=== PATIENT | female | born 1975 | race Caucasian/White ===

== ENCOUNTER 2020-08-16 09:02 | Emergency (ER) | payer BC, SELFPAY ==
--- NOTE | ~2020-08-16 | XR_ITS ---
EXAMINATION: XR foot RT min 3V DATE: 08/16/2020 09:36 INDICATION: Right foot injury and pain. TECHNIQUE: 4 views of right foot were obtained. COMPARISON: None. FINDINGS: There is mild hallux valgus. There is a nondisplaced oblique fracture of base of fifth meta tarsal. There is mild osteoarthritis of first and fifth metatarsophalangeal joints and talonavicular joint. There are enthesophytes at the posterior and plantar aspects of calcaneal tuberosity. IMPRESSION: 1. Nondisplaced oblique fracture of base of fifth metatarsal. 2. Mild polyarticular osteoarthritis. 3. Mild hallux valgus. Reviewed, dictated and finalized at location A.
[2020-08-16 09:12] VITALS: BP 108/53; PULSE 75; RESP 16; TEMP 36.7; O2SAT 100
--- NOTE | 2020-08-16 09:20 | ED.LOWEXIN ---
HPI - Extremity Injury (Lower) General Chief Complaint: Extremity Injury, Lower Stated Complaint: right ankle pain/fall down stairs Time Seen by Provider: 08/16/20 09:20 Source: patient and RN notes reviewed History of Present Illness HPI Narrative: Patient is a 45-year-old female who presents the urgent care with complaints of right lateral foot pain. Patient states that this morning she fell down the steps completely turning her right foot outward. Patient states that it does not hurt to bear weight on the foot unless she bears all of her weight on the ball of the foot. States that the pain exacerbates with movement. States that she is taken Tylenol and used ice prior to arrival. No other acute complaints or injuries from the fall. Denies hitting her head. No acute distress noted. Patient aware of the plan of care. Some parts of this dictation were generated by voice recognition software and may contain typographical and/or grammatical inaccuracies. Related Data Home Medications Medication Instructions Recorded Confirmed bupropion HCl [Wellbutrin XL] 300 mg PO QAM 08/16/20 08/16/20 topiramate 100 mg PO DAILY 08/16/20 08/16/20 venlafaxine [Effexor XR] 75 mg PO DAILY 08/16/20 08/16/20 Allergies Allergy/AdvReac Type Severity Reaction Status Date / Time Penicillins Allergy Unknown Swelling Verified 08/16/20 09:17 of Lip/Tongue/Throat Review of Systems Review of Systems: Narrative: CONSTITUTIONAL: Denies fever, chills, or sweats. EYES: Denies visual changes, redness, or discharge. ENT: Denies rhinorrhea, congestion, sore throat, or otalgia. CARDIOVASCULAR: Denies chest pain, palpitations, or edema. RESPIRATORY: Denies cough or dyspnea. GASTROINTESTINAL: Denies abdominal pain, nausea, vomiting, or diarrhea. GENITOURINARY: Denies dysuria or hematuria. SKIN: Denies rash or itching. MUSCULOSKELETAL: Reports of right lateral foot pain due to fall NEUROLOGIC: Denies headache, numbness, or weakness. All other systems reviewed are negative, except as documented in HPI. PMFSH Comments At the time of my signature, I reviewed and agree with the nursing past medical, surgical, social, and family history. There is no relevant family history pertinent to the patient complaint. Exam Narrative: Exam Narrative: GENERAL: This is a well-nourished, well-developed patient, in no apparent distress. HEAD: normocephalic, atraumatic. EYES: PERRL. Sclera clear/white. Vision is grossly intact. EARS: External ears normal NOSE: External nose normal with no obvious nasal discharge, nares without redness, no rhinorrhea. THROAT: Mucous membranes moist, posterior pharynx clear. NECK: Neck supple SKIN: warm, intact with no suspicious lesions or rash, good texture and turgor. NEURO: awake, alert, and oriented to person, place and time. There were no obvious focal neurologic abnormalities. EXTREMITIES: Mild edema noted to the right proximal lateral foot with slight ecchymosis. Positive strong right pedal pulse with capillary refill less than 2 seconds. Range of motion not tested due to pain. Patient ambulates with mild difficulty. No obvious deformity or fracture noted to the right lower extremity. Course Vital Signs Vital signs: Vital Signs Temperature 98.1 F 08/16/20 09:12 Pulse Rate 75 08/16/20 09:12 Respiratory Rate 16 08/16/20 09:12 Blood Pressure 108/53 L 08/16/20 09:12 Pulse Oximetry 100 08/16/20 09:12 Temperature 98.1 F 08/16/20 09:12 Pulse Rate 75 08/16/20 09:12 Respiratory Rate 16 08/16/20 09:12 Blood Pressure 108/53 L 08/16/20 09:12 Pulse Oximetry 100 08/16/20 09:12 Reviewed Procedures Orthopedic Splinting/Casting Injury #1: Side: right Lower Extremity Injury Location: foot (Fifth metatarsal fracture) OCL: short leg (Posterior) Pre-Procedure Neuro Vascular Exam: normal Post-Procedure Neuro Vascular Exam: normal Other Orthopedic Equipment: crutc
== END 2020-08-16 10:39 | disposition home or self-care (01) ==
PROVIDERS: Emergency Provider Nurse Practitioner Family; PCP Internal Medicine
DX: S92.354A Nondisplaced fracture of fifth metatarsal bone, right foot, initial encounter for closed fracture (principal); W10.9XXA Fall (on) (from) unspecified stairs and steps, initial encounter; F41.9 Anxiety disorder, unspecified; F32.9 Major depressive disorder, single episode, unspecified
CPT/HCPCS: 29515; 73630; 99214; G0463

== ENCOUNTER 2021-04-01 13:15 | Outpatient (CLI) | payer BC, SELFPAY ==
--- NOTE | ~2021-04-01 | XR_ITS ---
XR foot RT min 3V DATE: 04/01/2021 13:30 INDICATION: Lateral foot pain after injury in August 2020 TECHNIQUE: Standing 4 view examination COMPARISON: 09/04/2020 right foot FINDINGS: Minimal plantar and mild posterior calcaneal enthesopathy. No fracture or dislocation, periosteal reaction or bone destruction. Joint spaces are preserved. No e rosive changes. IMPRESSION: Plantar and posterior calcaneal enthesopathy No fracture or dislocation Reviewed, dictated and finalized at location A.
== END 2021-04-01 13:16 | disposition home or self-care (01) ==
LOC: ANHBWCIMG 13:16
PROVIDERS: PCP Internal Medicine; Visit Provider Orthopaedic Surgery
DX: M79.671 Pain in right foot (principal); M77.31 Calcaneal spur, right foot
CPT/HCPCS: 73630

== ENCOUNTER 2025-08-14 14:09 | Emergency (ER) | payer OTHER, SELFPAY ==
[2025-08-14 14:16] VITALS: BP 114/68; PULSE 79; RESP 20; TEMP 36.5; O2SAT 100
--- NOTE | 2025-08-14 14:30 | ED.URI ---
HPI - URI/Sore Throat General Chief Complaint: Upper Respiratory Infection Stated Complaint: Sore Throat/Headache/Cough Time Seen by Provider: 08/14/25 14:30 Source: patient and RN notes reviewed Mode of arrival: ambulatory Limitations: no limitations History of Present Illness HPI Narrative: 50-year-old female presents concern for sore throat, nasal congestion for 4 days. Reports she started having a productive cough yesterday. She has been taking Mucinex. She denies body aches, chills, fever, sweats. MD elicited complaint: cough and sore throat Related Data Home Medications ?Medication ?Instructions ?Recorded ?Confirmed ?Last Taken ?Type bupropion HCl 300 mg 24 hr tablet, 300 mg PO QAM 08/16/20 04/01/21 Unknown History extended release (Wellbutrin XL) venlafaxine 75 mg capsule,extended 75 mg PO DAILY 08/16/20 04/01/21 Unknown History release 24 hr (Effexor XR) atorvastatin 10 mg tablet mg 08/14/25 Unknown History propranolol 40 mg tablet mg 08/14/25 Unknown History topiramate 50 mg tablet mg 08/14/25 Unknown History Allergies Allergy/AdvReac Type Severity Reaction Status Date / Time Penicillins Allergy Unknown Swelling Verified 08/14/25 14:20 of Lip/Tongue/Throat Review of Systems Review of Systems: CONSTITUTIONAL: Denies malaise, chills, sweats, or fever. EYES: Denies visual changes, redness, or discharge. ENT: Reports rhinorrhea, congestion, and sore throat. CARDIOVASCULAR: Denies chest pain, palpitations, or edema. RESPIRATORY: Reports cough. Denies dyspnea. GASTROINTESTINAL: Denies abdominal pain, nausea, vomiting, diarrhea SKIN: Denies rash or itching. MUSCULOSKELETAL: Denies myalgia. NEUROLOGIC: Denies headache. All systems reviewed & are unremarkable except as noted in HPI and below PMFSH Past Medical History Medical History (Updated 08/14/25 @ 14:35 by Rosa De Jesus NP) Acquired bilateral pes cavus Peroneal tendinitis of right lower extremity Foot sprain Anxiety Depression Anemia GERD (gastroesophageal reflux disease) Vision changes Sleep apnea Dizziness Chronic headaches Family History Family History Other Heart disease Hypertension Malignant neoplasm Social History Social History Smoking status: Never smoker Alcohol intake: never Comments At time of signature, agree with nursing past medical, surgical, social and family history. There is no relevant family history pertinent to the presenting complaint Exam Narrative: GENERAL: Well-appearing, well-nourished, and in no acute distress. HEAD: Normocephalic EYES: PERRLA, conjunctivae clear ENT: Nares clear, turbinates edematous and erythematous, clear discharge. Mucous membranes moist. TM pearly with sharp light reflex bilaterally; no tragal tenderness. Oropharynx not erythematous without lesions. Tonsils not enlarged and without exudate, no drooling, no hoarseness, no trismus, uvula midline. NECK: Supple. No lymphadenopathy CHEST: Clear to auscultation, breath sounds equal. No wheezing, rhonchi, rales, or stridor. No respiratory distress, speaks in full sentences. HEART: Regular rate and rhythm. No murmur heard. SKIN: Warm, dry, no rash. NEURO: Alert and oriented x3. PSYCH: Normal mood and affect Course Course Emergency Course: Patient is aware of diagnosis, understands and agrees to treatment plan. Anticipatory guidance given. Patient agrees to follow-up as directed and is aware of reasons to seek care at the emergency department. Portions of this record may have been created with voice recognition software Level of Care: Express Care Visit Vital Signs Vital signs: Vital Signs Temperature 97.7 F 08/14/25 14:16 Pulse Rate 79 08/14/25 14:16 Respiratory Rate 08/14/25 14:16 Blood Pressure 114/68 08/14/25 14:16 Pulse Oximetry 100 08/14/25 14:16 Oxygen Delivery Room Air 08/14/25 14:16 Temperature 97.7 F 08/14/25 14:16 Pulse Rate 79 08/14/25 14:16 Respiratory Rate 08/14/25 14:16 Blood Pressure 114/68 08/14/25 14:16 Pulse Oximetry 100 08/14/25 14:16 Oxygen Delivery Room Air 08/14/25 14:16 Reviewed. MDM - URI/Sore Throat MDM Narrative Medical decision making narrative: Differential diagnosis considered: Baez virus, strep pharyngitis, allergic rhinitis, upper respiratory tract infection, sinusitis, rhinosinusitis, nasopharyngitis. viral pharyngitis, otitis media, otitis externa, pneumonia, bronchitis, viral cough syndrome, viral syndrome, and influenza. Exam findings show no acute concerns or changes; patient is non-toxic appearing and is in no distress. Patient is appropriate for outpatient treatment and follow-up. Lab Data Attestation: I reviewed the patient's lab results. Critical Care Time Critical Care Time Critical Care Time: No Discharge Plan Discharge Clinical Impression: Upper respiratory infection Patient Disposition: Home Condition: Stable Instructions: Upper Respiratory Infection (ED) Additional Instructions: Your rapid strep swab was negative today at [facility]. A throat culture will be sent to the laboratory for further testing. If the test is positive, you will receive a phone call within 48 hours and an appropriate antibiotic will be initiated at that time. Your symptoms are likely due to a viral illness, which is not treated with antibiotics. Viral symptoms can be present for up to a few weeks. -Alternate Tylenol and Motrin per package directions for fever or pain. -Antihistamine medication such as Benadryl at night and Zyrtec during the day can help improve symptoms. -Eat and drink things that are easy to swallow, like tea or soup, or popsicles to suck on. -Oral rinses such as: Salt water gargles and/or may use topical anesthetic (eg. Chloraseptic spray) or lozenges to relieve dryness or throat pain). -Frequent hand washing or hand proposal lead writer is one of the best ways to prevent spread of infection. -Follow up with primary care provider in 2-3 days if condition is not improving; or seek ER visit if you have trouble breathing, cannot drink enough fluids, have muffled voice, difficulty opening your mouth, or severe swelling. Patient Language: Lao Prescriptions: New pseudoephedrine HCl [12 Hour Decongestant] 120 mg tablet extended release 120 mg PO Q12H PRN (Reason: nasal congestion) Qty: 20 0RF dextromethorphan-guaifenesin [Mucinex DM] 60-1,200 mg tablet extended release 12 hr 1 tablet PO Q12H Qty: 12 0RF No Action venlafaxine [Effexor XR] 75 mg Capsule,Extended Release 24hr 75 mg PO DAILY bupropion HCl [Wellbutrin XL] 300 mg Tablet Extended Release 24 Hr 300 mg PO QAM atorvastatin 10 mg tablet propranolol 40 mg tablet topiramate 50 mg tablet Follow-up/Referrals: Kuldip,MD Kobe [Primary Care Provider] Stand Alone Forms: Work/School Release IP Time of Disposition: 14:36
[2025-08-14 14:34] LABS: EDSTREPNEGPOS1 Negative (Negative)
--- OUTSIDE RECORDS SUMMARY | 2025-08-14 14:46 | XMS_ITS | Clinical Summary ---
Author Organization [facility] Address [facility] [place] [address] Care Team Providers Care Petal Shaper Hand Name Role Phone Kobe Christiansen MD Primary Care Provider [phone] Allergies Active Allergy Reactions Criticality Noted Date Comments Penicillins Anaphylaxis,Swelling High 12/17/1988 Medications CALCIUM OR Take 500 mg by mouth 2 (two) times daily. Active vitamin D3, cholecalciferol, (D 5000) 125 mcg capsule Take 1 capsule (5,000 Units total) by mouth daily. Active famotidine (PEPCID) 20 MG tablet Take 1 tablet (20 mg total) by mouth daily. Active propranolol (INDERAL) 40 MG tablet Take 1 tablet (40 mg total) by mouth 2 (two) times daily. 12/22/19 25 Active tirzepatide (MOUNJARO) 2.5 MG/0.5ML injection 12/12/19 25 Active vitamin E (E200) 90 MG (200 UNIT) capsule Take 1 capsule (200 Units total) by mouth daily. Active amitriptyline (ELAVIL) 10 MG tablet Take 1 tablet every day by oral route at bedtime. Active buPROPion XL (WELLBUTRIN XL) 300 MG 24 hr tabletIndications: Mixed anxiety and depressive disorder TAKE 1 TABLET(300 MG) BY MOUTH DAILY 90 tablet 06/17/20 25 Active ketoconazole (NIZORAL) 2 % creamIndications:R doug Apply topically 2 (two) times daily. 30 g 1 08/01/20 25 Active atorvastatin (LIPITOR) 10 MG tabletIndications: Mixed hyperlipidemia Take 1 tablet (10 mg total) by mouth daily. 90 tablet 1 08/01/20 25 Active venlafaxine XR (EFFEXOR-XR) 75 MG 24 hr capsuleIndications :Mixed anxiety and depressive disorder Take 1 capsule (75 mg total) by mouth daily. 90 capsule 1 08/01/20 25 Active topiramate (TOPAMAX) 50 MG TabIndications:Chr onic tension-type headache, not intractable Take 1 tablet (50 mg total) by mouth 2 (two) times daily. 180 tablet 1 08/08/20 25 Active topiramate (TOPAMAX) 50 MG Tab Take 1 tablet (50 mg total) by mouth 2 (two) times daily. 025 Discontin ued(Reord er) venlafaxine XR (EFFEXOR-XR) 75 MG 24 hr capsule Take 1 capsule (75 mg total) by mouth daily. 12/22/19 25 025 Discontin ued(Reord er) atorvastatin (LIPITOR) 10 MG tablet Take 1 tablet (10 mg total) by mouth daily. 03/14/20 25 025 Discontin ued(Reord er) Active Problems Problem Noted Date Diagnosed Date Ischemic colitis ([facility]) 08/01/2025 Assessment & Plan (08/01/2025 1:47 PM CDT): - Hospitalized for ischemic colitis, presenting with bloody diarrhea. -Symptoms have resolved, and she is currently asymptomatic. - Colonoscopy on 06/14/2025 revealed mucosal ulceration in the sigmoid and descending colon. Completed treatment with Cipro and Flagyl at home. - Discussed the need for a follow-up colonoscopy in a year to ensure healing. Referral to a apple picking supervisor will be made. Orders: Ambulatory referral to Gastroenterology Chronic tension-type headache, not intractable 0 04/22/2025 Assessment & Plan (08/01/2025 1:47 PM CDT): -stable on tomamax/propranalol/elavil Assessment & Plan (04/22/2025 2:35 PM CDT): -stable on tomamax/propranalol/elavil Mixed anxiety and depressive disorder 04/20/2025 Assessment & Plan (08/01/2025 1:47 PM CDT): Stable -pt is on effexor/wellbutrin Orders: venlafaxine XR (EFFEXOR-XR) 75 MG 24 hr capsule; Take 1 capsule (75 mg total) by mouth daily. Assessment & Plan (04/22/2025 2:35 PM CDT): Stable -pt is on effexor/wellbutrin Orders: COMPREHENSIVE METABOLIC PANEL; Future CBC W/DIFF AUTOMATED; Future Mixed hyperlipidemia 04/20/2025 Assessment & Plan (08/01/2025 1:47 PM CDT): -continue statin with diet and exercise Orders: atorvastatin (LIPITOR) 10 MG tablet; Take 1 tablet (10 mg total) by mouth daily. Assessment & Plan (04/22/2025 2:35 PM CDT): -continue statin with diet and exercise Orders: LIPID PANEL; Future LFT elevation 04/20/2025 Assessment & Plan (08/01/2025 5:14 PM CDT): -hepatitis panel-neg Recent hospital labs showed normal LFT Essential tremor 08/30/2021 Assessment & Plan (08/01/2025 1:47 PM CDT): -stable on propranolol Assessment & Plan (04/22/2025 2:35 PM CDT): -stable on propranolol Family history of colon cancer 11/05/2020 Overview (04/20/2025): Grand mother had colon cancer-colonoscopy 04/06-repeat in 10 yrs Obstructive sleep apnea syndrome in adult 2011 Overview (04/20/2025): on cpap/ sees Assessment & Plan (04/22/2025 2:35 PM CDT): pt lost weight and not using cpap now Resolved Problems Problem Noted Date Diagnosed Date Resolved Date Other primary sleep apnea of 04/20/2025 04/20/2025 Encounters Date Type Department Care Team Description 08/01/2025 10:40 AM CDT Office Visit [facility] Family & Internal Medicine [address] [phone] Kobe Christiansen MD Follow Up (3 mo f/u) 08/01/2025 Travel 07/27/2025 Travel from Last 3 Months Immunizations Immunization Administration Dates Next Due COVID-19 Vaccine (Generic) 02/05/2021 Influenza (Generic) 09/23/2024 Influenza Adult (Generic) 09/01/2022,08/30/2021, 10/19/2019,08/13/2016 MMR (MMRII) 04/25/2009 Td (Generic) 11/16/2010 Tdap (Generic) 05/08/2022 Family History Medical History Relation Comments Hypertension Maternal Grandmother Stroke Maternal Grandmother Heart Disease Mother Cancer Paternal Aunt Cancer Paternal Grandfather Cancer Paternal Grandmother Relation Status Comments Brother Alive Maternal Grandmother Mother Paternal Aunt Paternal Grandfather Paternal Grandmother Social History Tobacco Use Types Packs/Day Years Used Date Smoking Tobacco: Never Passive Smoke Exposure: Never Smokeless Tobacco: Never Tobacco Cessation:Counseling Given: No Alcohol Use Standard Drinks/Week Comments Never 0 (1 standard drink = 0.6 oz pur e alcohol) PHQ-2 Answer Date Recorded Patient Health Questionnaire-2 Score 1 04/20/2025 Comments No Sex and Gender Information Value Date Recorded Sex Assigned at Not on file Legal Sex Female 5:57 PM CORPORATE MANAGER Gender Identity Not on file Sexual Orientation Not on file Last Filed Vital Signs Vital Sign Reading Time Taken Comments Blood Pressure 133/81 08/01/2025 10:52 AM CDT Pulse 66 08/01/2025 10:52 AM CDT Temperature 36.9 C (98.5 F) 08/01/2025 10:52 AM CDT Respiratory Rate 16 08/01/2025 10:52 AM CDT Oxygen Saturation 100% 08/01/2025 10:52 AM CDT Inhaled Oxygen Concentration - - Weight 64 kg (141 lb) 08/01/2025 10:52 AM CDT Height 154.9 cm (5' 1) 08/01/2025 10:52 AM CDT Body Mass Index 26.64 08/01/2025 10:52 AM CDT Plan of Treatment Upcoming Encounters Date Type Department Care Team (Late st Contact Info) Description 10/11/2025 11:20 AM CORPORATE MANAGER Office Visit [facility] [place] [address] [place] [address] [place] [address] [place] [phone] Tana Niño, GEENA [address] [address] 10/31/2025 4:20 PM CORPORATE MANAGER Office Visit [facility] Family & Internal Medicine - [place] [id number] [place] [phone] [place] [address] [place] [address] [phone] Health Maintenance Due Date Last Done Comments Cervical Cancer Screening Pa p Smear (Age 30 to 64) Every 3 Years 1976 Colorectal Cancer Screening Colonoscopy (10 Years) 1976 Annual Physical 1979 Hepatitis B Vaccines (1 of 3 - 19+ 3-dose series) 1995 Cervical Cancer Screening Pa p with HPV Testing (Age 30 to 64) Every 5 Years 2006 Cervical Cancer Screening wi th HPV 2006 Mammogram Screening 02/23/2025 02/23/2023, 07/27/2020, 09/18/2016 COVID-19 Vaccine (2 - 2024-2 6 season) 2025 02/05/2021 DTaP, Tdap and Td Vaccines ( 2 - Td or Tdap) 05/08/2032 05/08/2022, 11/16/2010 Hepatitis C Completed 04/20/2025 PHQ-2 (Physician Kenaitze) Completed 04/20/2025 Meningococcal B Vaccine Aged Out No l onger eligible based on patient's age to complete this topic Meningococcal Vaccine Aged Out No ashleigh nolberto eligible based on patient's age to complete this topic Pneumococcal Vaccine: Pediatrics (0 to 5 Years) and At-Risk Patients (6 to 49 Years) Aged Out No longer eligible b ased on patient's age to complete this topic RSV Immunizations Under 20 Months Aged Out No longer eligible b ased on patient's age to complete this topic Procedures Procedure Name Priority Date/Time Associated Diagnosis Comments HEPATITIS PANEL,ACUTE Routine 04/20/2025 8:49 AM CDT LFT elevation from Last 3 Months or Most Recently Relevant to Health Maintenance Results * HEPATITIS PANEL,ACUTE (04/20/2025 8:49 AM CDT) HEPATITIS B SURFACE AG NON-REACTI VE NON-REACTI VE 04/21/2025 12:20 AM CDT [facility] HEP B CORE IGM NON-REACTI VE NON-REACTI VE 04/21/2025 12:20 AM CDT [facility] HAV IGM NON-REACTI VE NON-REACTI VE 04/21/2025 12:20 AM CDT [facility] HEPATITIS C AB NON-REACTI VE NON-REACTI VE 04/21/2025 12:20 AM CDT [facility] 04/20/2025 8:49 AM CDT Kobe Christiansen MD LABORATORY Final Result [facility] [address] [place] [address], [place] [phone] from Last 3 Months or Most Recently Relevant to Health Maintenance Insurance [facility] Care Teams Petal Shaper Hand Relationship Specialty [place] [id number] [address] PCP - General INTERNAL MEDICINE 04/07/25
--- OUTSIDE RECORDS SUMMARY | 2025-08-14 14:46 | XMS_ITS | Clinical Summary ---
[facility] Organization [facility] Address [address] [place] [address] Phone Care Team Providers Care Housekeeper/Laundry Assistant Name Role Phone Kobe Christiansen MD Primary Care Provider Robyn Morales APRN, CLOUD ARCHITECT Unavailable Allergies Active Allergy Reactions Criticality Noted Date Comments Penicillins Swelling 10/01/2020 Medications buPROPion (Wellbutrin XL) 300 MG TABLET SR 24 HR XL tablet Take 300 mg by mouth every morning. Active venlafaxine (EFFEXOR) 75 MG Tablet Take 75 mg by mouth 3 times daily. Active topiramate (TOPAMAX) 100 MG Tablet Take 100 mg by mouth 2 times daily. Active propranolol (INDERAL) 40 MG Tablet Take 40 mg by mouth 3 times daily. Active Cholecalciferol (Vitamin D) 2000 UNIT Tablet Take by mouth. Active calcium 500 MG Tablet Take 500 mg by mouth 2 times daily. Active modafinil (PROVIGIL) 100 MG TabletIndication s:Excessive daytime sleepiness Take 1 Tablet by mouth daily. 30 Tablet 3 02/01/2024 Active Active Problems Problem Noted Date Diagnosed Date MARCELLUS (obstructive sleep apnea) 02/01/2024 Excessive daytime sleepiness 02/01/2024 Social History Tobacco Use Types Packs/Day Years Used Date Smoking Tobacco: Never Smokeless Tobacco: Never Tobacco Cessation:Counseling Given: Not Answered Alcohol Use Standard Drinks/Week Comments Never 0 (1 standard drink = 0.6 oz pur e alcohol) Sexually Active Control Partners Comments Not Currently Comments No Sex and Gender Information Value Date Recorded Sex Assigned at Not on file Legal Sex Female 11:33 PM CDT Gender Identity Not on file Sexual Orientation Not on file Last Filed Vital Signs Vital Sign Reading Time Taken Comments Blood Pressure 128/72 02/01/2024 11:18 AM CDT Pulse 88 02/01/2024 11:18 AM CDT Temperature 36.3 C (97.4 F) 02/01/2024 11:18 AM CDT Respiratory Rate 14 02/01/2024 11:18 AM CDT Oxygen Saturation 97% 02/01/2024 11:18 AM CDT Inhaled Oxygen Concentration - - Weight 89.1 kg (196 lb 8 oz) 02/01/2024 11:18 AM CDT Height 154.9 cm (5' 1) 02/01/2024 11:18 AM CDT Body Mass Index 37.13 02/01/2024 11:18 AM CDT Plan of Treatment Health Maintenance Due Date Last Done Comments Hepatitis C Virus (HCV) Screening 1976 Hepatitis B Immunization (1 of 3 - 19+ 3-dose series) 1995 Pap Smear 1997 Cervical Cancer Screening (CCS) 2006 HPV/Cotest 2006 Cologuard 2021 Immunochemical Fecal Occult Blood 2021 Mammogram 02/24/2024 02/23/2023, 07/17, 09/18/2016 Influenza Immunization (#1) 07/17/202508/16, 08/30/2021, 10/19/2019, Additional history exists SARS-COV-2 Immunization ( season) 2025 02/05/2021 Colonoscopy 02/19/2032 02/18/2022 Colorectal Cancer Screening 02/19/2032 Respiratory Syncytial Virus (RSV) Immunization (Adult) (1 - 1-dose 75+ series) 2051 DTaP/Tdap/Td Immunization Discontinued 05/08/2022, 11/2010 TdaP Immunization Completed 05/08/2022 Discussion re Starting/Frequency of Mammograms Completed 02/23/2023, 07/27/2020, 09/18/2016 Human Papillomavirus (HPV) Immunization Aged Out No longer eligible based on patient's age to complete this topic Meningococcal Immunization (ACWY) Aged Out No longer eligible based on patient's age to complete this topic Pneumococcal Immunization Combined Aged Out No longer eligible based on patient's age to complete this topic Rotavirus Immunization Aged Out No lo nger eligible based on patient's age to complete this topic Procedures Procedure Name Priority Date/Time Associated Diagnosis Comments [facility] SCREENING BILATERAL DIGITAL W CAD Routine 09/18/2016 2:23 PM CDT Visit for screening mammogram from Last 3 Months or Most Recently Relevant to Health Maintenance Results * [facility] SCREENING BILATERAL DIGITAL W CAD (09/18/2016 2:23 PM CDT) Anatomical Region Laterality Modality breast Bilateral Mammography 09/18/2016 2:09 PM CDT Narrative 09/30/2016 8:00 AM [employer]ENT[employer] - [facility] SCREENING BILATERAL DIGITAL W CAD BILATERAL DIGITAL SCREENING MAMMOGRAM WITH CAD WITH MEDIOLATERAL OBLIQUE CRANIOCAUDAL: 09/18/2016 The study was acquired using digital technology and interpreted from soft copy. Current study was also evaluated with ICAD version 7.2. CLINICAL: Routine screening. Patient has no complaints. No personal history of cancer. No family history of breast cancer. COMPARISONS: Comparison is made to exams dated: 01/22/2015, 01/25/2015, 01/29/2015, 07/30/2015, and 08/03/2015 [facility]. BREAST TISSUE: There are scattered fibroglandular densities in both breasts. FINDINGS: There is a benign cyst in the lateral left breast. No significant masses, calcifications, or other findings are seen in either breast. There has been no significant interval change. IMPRESSION: BI-RAD 2 BENIGN There is no mammographic evidence of malignancy. A 1 year screening mammogram is recommended. The patient has been or will be contacted. The patient will be entered into a reminder system with a target due date of 1 year for her next screening exam. Electronically signed by: Jameson Kellye M.D. nh/:09/29/2016 18:13:17 Music Journalist: Renee Cuellar([place]), [facility] letter sent: Normal Exam Reading location: [facility] BI-RADS: 2 Benign Procedure Note Jameson Kelley MD - 09/30/2016 - [facility] SCREENING BILATERAL DIGITAL W CAD BILATERAL DIGITAL SCREENING MAMMOGRAM WITH CAD WITH MEDIOLATERAL OBLIQUE CRANIOCAUDAL: 09/18/2016 The study was acquired using digital technology and interpreted from soft copy. Current study was also evaluated with ICAD version 7.2. CLINICAL: Routine screening. Patient has no complaints. No personal history of cancer. No family history of breast cancer. COMPARISONS: Comparison is made to exams dated: 01/22/2015, 01/25/2015, 01/29/2015, 07/30/2015, and 08/03/2015 [facility]. BREAST TISSUE: There are scattered fibroglandular densities in both breasts. FINDINGS: There is a benign cyst in the lateral left breast. No significant masses, calcifications, or other findings are seen in either breast. There has been no significant interval change. IMPRESSION: BI-RAD 2 BENIGN There is no mammographic evidence of malignancy. A 1 year screening mammogram is recommended. The patient has been or will be contacted. The patient will be entered into a reminder system with a target due date of 1 year for her next screening exam. Electronically signed by: Jameson Kelley M.D. nh/:09/29/2016 18:13:17 Music Journalist: Renee Cuellar(R), [facility] letter sent: Normal Exam Reading location: [facility] BI-RADS: 2 Benign us Brea Tolliver MD IMG MAMMO ORDERABLES Final Resu lt from Last 3 Months or Most Recently Relevant to Health Maintenance Insurance [facility] O on file Care Teams Housekeeper/Laundry Assistant Relationship Specialty Start Date End Date Kobe Christiansen MD [address] [place] [address] PCP - General Internal Medicine 09/16/16 Robyn Morales APRN, CLOUD ARCHITECT [address] [address] Nurse Practitioner Advanced Practice Nurse 02/01/24
--- OUTSIDE RECORDS SUMMARY | 2025-08-14 14:46 | XMS_ITS | Clinical Summary ---
Author Organization [facility] Address [address] [place] [address] Care Team Providers Care Clinical Exercise Physiologist Name Role Phone Kobe Christiansen MD Primary Care Provider [phone] Erma Rangel MD Unavailable Allergies Active Allergy Reactions Criticality Noted Date Comments Penicillins Swelling Medium 10/01/2020 Medications buPROPion XL (WELLBUTRIN XL) 300 mg 24 hr tablet Take 1 tablet (300 mg total) by mouth nightly 3 9 Active venlafaxine XR (EFFEXOR-XR) 75 mg 24 hr capsule Take 1 capsule (75 mg total) by mouth nightly 0 9 Active propranoloL (INDERAL) 40 mg tablet Take 1 tablet (40 mg total) by mouth nightly Active cholecalciferol (VITAMIN D-3) 5,000 unit capsule Take 1 capsule (5,000 Units total) by mouth nightly Active vitamin E (AQUASOL E) 200 unit capsuleIndicati ons:takes 180 units Take 1 capsule (200 Units total) by mouth nightly Active famotidine (PEPCID) 20 mg tablet Take 1 tablet (20 mg total) by mouth nightly Active topiramate (TOPAMAX) 50 mg tablet Take 1 tablet (50 mg total) by mouth nightly Active tirzepatide (Mounjaro) 2.5 mg/0.5 mL pen injector injection Inject 0.5 mL (2.5 mg total) under the skin once a week Pt takes on Saturdays 5 Active atorvastatin (LIPITOR) 10 mg tablet Take 1 tablet (10 mg total) by mouth daily 5 Active docusate sodium (Colace) 100 mg capsule Take 1 capsule (100 mg total) by mouth daily as needed 2 Active Active Problems Problem Noted Date Diagnosed Date Colitis 06/12/2025 Bloody diarrhea 06/12/2025 Lower abdominal pain 06/12/2025 Encounter for screening colonoscopy 02/13/2022 Overview (02/13/2022): Added automatically from request for surgery [id number] Essential tremor 08/30/2021 Abnormal smell 08/30/2021 Family history of colon cancer 11/14/2020 Overview (11/14/2020): Added automatically from request for surgery [id number] Headache 05/16/2015 Overview (02/19/2017): Frequent headaches Vitamin D deficiency 05/16/2015 Overview (02/19/2017): Vitamin D deficiency Sleep apnea 04/01/2014 Overview (02/21/2017): Sleep apnea Hypersomnia with sleep apnea 04/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 Overview (02/18/2017): Hypersomnia with sleep apnea Adiposity 04/01/2012 Overview (02/18/2017): Obesity Obstructive sleep apnea syndrome in adult 2011 Overview (02/19/2017): Obstructive sleep apnea syndrome in adult Resolved Problems Problem Noted Date Diagnosed Date Resolved Date 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 08/30/2021 Encounters Date Type Department Care Team Description 06/20/2025 Telephone [facility] Gastroenterology at [place] [address] [facility] [address] [place] [phone] Gia Balbuena 06/16/2025 [facility] Post Discharge Follow up phone call [facility] Acute Medicine [address] [place] [address] Aura Zavala, RN 06/16/2025 Results Follow-Up [facility] Gastroenterology at [address] [place] [phone] Erma Rangel MD Surgical pathology 06/14/2025 12:55 PM CDT - 06/14/2025 1:25 PM CDT Surgery [address] [address] Erma Rangel MD COLON BIOPSY 06/14/2025 12:08 PM CDT Anesthesia Event [address] [address] Christoph Andrade MD McDowell, Xiang Rodriguez MD 06/12/2025 8:37 AM CDT - 06/14/2025 5:42 PM CDT Hospital Encounter [facility] [address] [place] [address] Kelli Ceballos MD Nikolic, Jelena, MD Kheirkhahan, Nazanin, MD Colitis (Primary Dx); Bloody stool; Bloody diarrhea; Lower abdominal pain Discharge Disposition: Discharge to home or self care from Last 3 Months Surgical History Surgery Date Site/Laterality Comments OTHER SURGICAL HISTORY 11/16/1995 - 11/15/1996 : 10 hr labor OTHER SURGICAL HISTORY 11/16/1999 - 11/15/2000 : 24 hr labor OTHER SURGICAL HISTORY Depression ([id number]): Drug therapy COLONOSCOPY 02/18/2022 1st Medical History Medical History Date Comments Hx Other Medical 1995 ; Outc ome: 38 week 7 lb(s) 10 oz Male Hx Other Medical 1999 ; Outc ome: 38 week 6 lb(s) 5 oz Female Sleep apnea 2010 Sleep apnea Hx Other Medical Depression (199 -2007) Family History Medical History Relation Name Comments Other Brother 2 Alive and well; COPD Maternal Grandmother COPD; C ause of : COPD Heart disease Maternal Grandmother Heart disease; Osteoporosis Maternal Grandmother Osteopo rosis; COPD Mother COPD; Hypertension Mother Hypertension; Colon cancer Paternal Grandmother Breast cancer Neg Hx Ovarian cancer Neg Hx Thyroid cancer Neg Hx Relation Name Status Comments Brother 1 Alive Brother 2 Maternal Grandmother Mother Paternal Grandmother Social History Tobacco Use Types Packs/Day Years Used Date Smoking Tobacco: Never Smokeless Tobacco: Never Alcohol Use Standard Drinks/Week Comments No 0 (1 standard drink = 0.6 oz pur e alcohol) [facility] Utilities Answer Date Recorded In the past 12 months has th e electric, gas, oil, or water company threatened to shut off services in your home? No 06/13/2025 Social Connection and Isolation Panel Answer Date Recorded In a typical week, how many times do you talk on the phone with family, friends, or neighbors? More than three times a week 06/13/2025 How often do you get togethe r with friends or relatives? More than three times a week 06/13/2025 How often do you attend chur ch or mandaen services? More than 4 times per year 06/13/2025 Do you belong to any clubs o r organizations such as jainism groups, unions, fraternal or athletic groups, or school groups? No 06/13/2025 How often do you attend meet ings of the clubs or organizations you belong to? More than 4 times per year 06/13/2025 Are you , , di vorced, , never , or living with a partner? 06/13/2025 AUDIT-C Answer Date Recorded Q1: How often do you have a drink containing alc ohol? Never 02/18/2022 Average Number of Drinks Not on file 022 Frequency of Binge Drinking Not on file 03/2022 Overall Financial Resource Strain (CARDIA) Answe r Date Recorded How hard is it for you to pa y for the very basics like food, housing, medical care, and heating? Not hard at all 06/13/2025 Hunger Vital Sign Answer Date Recorded Within the past 12 months, y ou worried that your food would run out before you got the money to buy more. Never true 06/13/20 25 Within the past 12 months, t he food you bought just didn't last and you didn't have money to get more. Never true 06/13/2025 PRAPARE - Transportation Answer Date Re corded In the past 12 months, has l ack of transportation kept you from medical appointments or from getting medications? No 05/17 In the past 12 months, has l ack of transportation kept you from meetings, work, or from getting things needed for daily living? No 06/13/2025 Housing Stability Vital Sign Answer Ted e Recorded In the last 12 months, was t here a time when you were not able to pay the mortgage or rent on time? No 06/13/2025 In the past 12 months, how m any times have you moved where you were living? 0 06/13/2025 At any time in the past 12 m [facility], were you homeless or living in a skilled nursing (including now)? No 06/13/2025 Personal Safety Answer Date Recorded Have you ever been in or are you currently in a harmful physical or emotional relationship or is someone making you feel afraid or unsafe? 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 Gender Identity Female 11/26/2021 1:01 PM TRANSPORT OPERATIONS INSPECTOR Sexual Orientation Straight 11/26/2021 1: 01 PM TRANSPORT OPERATIONS INSPECTOR Obstetrics History Para Term AB IAB SAB Ectopic Multiple Livin g Live Births 2 2 2 Date Outcome GA Total Labor Labor/2nd/3rd Weight Sex Type Anes PTL Deysi A1 A5 Name Clin Term Term Last Filed Vital Signs Vital Sign Reading Time Taken Comments Blood Pressure 113/62 06/14/2025 4:11 PM CDT Pulse 70 06/14/2025 4:11 PM CDT Temperature 36.4 C (97.6 F) 06/14/2025 4:11 PM CDT Respiratory Rate 18 06/14/2025 4:11 PM CDT Oxygen Saturation 100% 06/14/2025 4:11 PM CDT Inhaled Oxygen Concentration - - Weight 62.7 kg (138 lb 3.7 oz) 06/12/2025 4:25 P M CDT Height 154.9 cm (5' 1) 06/12/2025 4:25 PM CDT Body Mass Index 26.12 06/12/2025 4:25 PM CDT Plan of Treatment Health Maintenance Due Date Last Done Comments Cervical Cancer Screening 1975 Depression Screening 1975 Hepatitis C Screening 1975 Hepatitis B Screening 1994 Regular Well Visit/Exam 18-64 1994 Breast Cancer Screening-Mammogram 02/24/2024 02/23/2023, 07/27/2020 Influenza Vaccine (#1) 2025 4, 09/01/2022, 08/30/2021, Additional history exists DTaP/Tdap/Td Vaccine (6 - Td or Tdap) 05/08/2032 05/08/2022, 11/16/2010, 08/27/1978, Additional history exists Colon Cancer Screening-Colonoscopy 06/14/2035 06/14/2025, 02/18/2022 Pneumococcal vaccine <65 Aged Out No longer eligible based on patient's age to complete this topic Procedures Procedure Name Priority Date/Time Associated Diagnosis Comments INFECTION PREVENTION AGUEDA AURIS PCR, SURVEILLANCE Routine 06/14/2025 3:13 PM CDT POCT HCG, URINE Routine 06/14/2025 12:00 PM CDT COLON BIOPSY 06/14/2025 11:50 AM CDT Colitis COLONOSCOPY 06/14/2025 11:19 AM CDT SURGICAL PATHOLOGY STAT 06/14/2025 8: 37 AM CDT Colitis HEMOGLOBIN AND HEMATOCRIT Timed 06/14/2025 5:58 AM CDT HEMOGLOBIN AND HEMATOCRIT Timed 06/14/2025 12:14 AM CDT ECG 12-LEAD STAT 06/13/2025 10:20 PM CDT HEMOGLOBIN AND HEMATOCRIT Timed 06/13/2025 5:52 PM CDT HEMOGLOBIN AND HEMATOCRIT Timed 06/13/2025 12:01 PM CDT EGFR Routine 06/13/2025 6:07 AM CDT DIFFERENTIAL AUTO Routine 06/13/2025 6:0 7 AM CDT COMPREHENSIVE METABOLIC PANEL Routine 06/13/2025 6:07 AM CDT CBC WITH AUTO DIFFERENTIAL Routine 06/13/2025 6:07 AM CDT HEMOGLOBIN AND HEMATOCRIT Timed 06/13/2025 12:20 AM CDT CALPROTECTIN, FECAL Routine 06/12/2025 8 :15 PM CDT CRYPTOSPORIDIUM AND GIARDIA ANTIGEN ASSAY Routine 06/12/2025 8:15 PM CDT STOOL CULTURE Routine 06/12/2025 8:15 PM CDT C. DIFFICILE TESTING Routine 06/12/2025 8:15 PM CDT URINALYSIS, MICROSCOPIC ONLY STAT 06/12/2025 5:07 PM CDT URINALYSIS AND REFLEX TO MICROSCOPIC AND CULTURE STAT 06/12/2025 5:07 PM CDT HEMOGLOBIN AND HEMATOCRIT STAT 06/12/2025 12:55 PM CDT CTA ABDOMEN PELVIS W WO CONTRAST ED 06/12/2025 10:30 AM CDT B ABO / RH CONFIRMATION TESTING STAT 06/12/2025 9:20 AM CDT PROTIME-INR STAT 06/12/2025 9:20 AM CDT APTT STAT 06/12/2025 9:20 AM CDT EGFR STAT 06/12/2025 8:25 AM CDT DIFFERENTIAL AUTO STAT 06/12/2025 8:2 5 AM CDT ANTIBODY SCREEN STAT 06/12/2025 8:25 AM CDT ABO/RH STAT 06/12/2025 8:25 AM CDT TYPE AND SCREEN STAT 06/12/2025 8:25 AM CDT COMPREHENSIVE METABOLIC PANEL STAT 06/12/2025 8:25 AM CDT CBC WITH AUTO DIFFERENTIAL STAT 06/12/2025 8:25 AM CDT SCREENING MAMMOGRAM BILATERAL W RAUDEL Schedule Routine, Read Routine (OP Routine) 02/23/2023 12:59 PM CDT Screening mammogram, encounter for from Last 3 Months or Most Recently Relevant to Health Maintenance Results * Infection Prevention Agueda auris PCR, surveillance Axilla/Groin (06/14/2025 3:13 PM CDT) Agueda auris DNA Not Detected Not Detected [facility] Comment: Interpretive Data Testing performed by [facility] using the [employer] Dizmo[employer] Agueda auris assay. This assay detects DNA from Agueda auris using Real-Time PCR. This assay is laboratory developed and is not cleared by the [place] Food and Drug Administration. The performance characteristics have been verified by the [facility]. Testing performed by: [facility], [address] [place]., [address] Axilla/Groin 06/14/2025 3:13 PM CDT 06/14/2025 6:56 PM CDT Jignesh Ford MD LAB MICROBIOLOGY - G ENERAL ORDERABLES Final Result Performing Organization Address City/State/[facility] Co de Phone Number [facility] [address] [facility] Department [place] [address] [facility] * POCT hCG, urine (06/14/2025 12:00 PM CDT) HCG, ur, POC Negative Negative Lot Number [id number] QC Backgroud Clear Acceptable QC Control Line Acceptable Urine 06/14/2025 12:0 0 PM CDT Erma Rangel MD POINT OF CARE TEST ORDERABLES Fi nal Result * Colonoscopy (06/14/2025 11:19 AM CDT) Anatomical Region Laterality Modality Other Narrative Procedure Note Erma Rangel MD - 06/14/2025 11:[address] [facility] Patient Name: Breanne Oleary Procedure Date: 06/14/2025 11:19 AM Date of : 1975 Admit Type: Inpatient Age: 49 Gender: Female Attending MD: Erma Rangel M.D., Room: [facility] ENDOSCOPY ROOM 2 Note Status: Finalized Patient Profile: This is a 49 year old female H significant forOSA presented to the hospital with 1 day history ofbloody diarrhea. CTA abdomen pelvis showed thickening from rectum to transverse colon consistent with colitis. Colonoscopy from 02/2022 showed hemorrhoidsotherwise normal. Procedure: Colonoscopy Indications: Last colonoscopy: February 2022, Hematochezia,Abnormal CT of the GI tract of colitis Referring MD: Kobe Christiansen M.D. Providers: Erma Rangel M.D. Impression: - Perianal skin tags found on perianal exam. - The examined portion of the ileum was normal. - Mucosal ulceration in the sigmoid colon and inthe descending colon suggestive of ishcemic colitis. Biopsied. - External and internal hemorrhoids. Recommendation: - [facility] - GI soft diet. - Complete 7 days of antibiotics. - No ibuprofen, naproxen, or other non-steroidal anti-inflammatory drugs. - Await pathology results. - Repeat colonoscopy in 1 year to check healing. - If tolerating diet can go home today from GI standpoint. Medicines: Monitored Anesthesia Care Complications: No immediate complications. Estimated Blood Loss: Estimated blood loss was minimal. Procedure: Pre-Anesthesia Assessment: - Prior to the procedure, a History and Physicalwas performed, and patient medications and allergieswere reviewed. The patient is competent. The risks and benefits of the procedure and the sedation optionsand risks were discussed with the patient. Allquestions were answered and informed consent was obtained. Patient identification and proposed procedure were verified by the physician, the supervisor denture department and the tv technician in the endoscopy suite. Mental Status Examination: normal. Prophylactic Antibiotics: The patient does not require prophylactic antibiotics. Prior Anticoagulants: The patient has taken no anticoagulant or antiplatelet agents. Afterreviewing the risks and benefits, the patient was deemed in satisfactory condition to undergo the procedure.The anesthesia plan was to use monitored anesthesiacare (MAC). Immediately prior to administration of medications, the patient was re-assessed foradequacy to receive sedatives. The heart rate, respiratory rate, oxygen saturations, blood pressure, adequacyof pulmonary ventilation, and response to care were monitored throughout the procedure. The physical status of the patient was re-assessed after the procedure. The benefits, risks and alternatives of theprocedure and sedation were discussed and informed consentwas obtained. All questions were answered. Please referto the signed informed consent document in the medical record. The bowel preparation used was Miralax via split dose instruction. The bowel preparation usedwas bisacodyl tablets via split dose instruction. The scope was passed under direct vision. The Pediatric Colonoscope PCF-H190L [id number] was introducedthrough the anus and advanced to the the terminal ileum.The colonoscopy was performed without difficulty. The patient tolerated the procedure well. The qualityof the bowel preparation was adequate. Bowel prep was administered using a split dose. Findings: Skin tags were found on perianal exam. The terminal ileum appeared normal. Ulcerated mucosa were present in the sigmoid colon and in thedescending colon suggestive of ischemic colitis. Biopsies were taken with a cold forceps for histology. External and internal hemorrhoids were found during retroflexion. Erma Rangel M.D. 06/14/2025 12:47:05 PM Number of Addenda: 0 Note Initiated On: 06/14/2025 11:19 AM Procedure Code(s): --- Professional --- 49602, Colonoscopy, flexible; with biopsy, single or multiple --- Technical --- 51230, Colonoscopy, flexible; with biopsy, single or multiple Diagnosis Code(s): --- Professional --- K64.8, Other hemorrhoids K63.3, Ulcer of intestine K64.4, Residual hemorrhoidal skin tags K92.1, Melena (includes Hematochezia) R93.3, Abnormal findings on diagnostic imaging of other parts of digestive tract --- Technical --- K64.8, Other hemorrhoids K63.3, Ulcer of intestine K64.4, Residual hemorrhoidal skin tags K92.1, Melena (includes Hematochezia) R93.3, Abnormal findings on diagnostic imaging of other parts of digestive tract CPT copyright 2022 [employer]. All rights reserved. The codes documented in this report are preliminary and upon diesel truck driver reviewmay be revised to meet current compliance requirements. Recognized by the [employer] [employer] for promoting quality in endoscopy Erma Rangel MD ENDOSCOPY PROCEDURES Final Resul t * Surgical pathology (06/14/2025 8:37 AM CDT) Tissue (Colon, Biopsy) 06/14/2025 12:22 PM CDT Narrative PATHOLOGY [facility] ([place]) - 06/16/2025 9:56 AM CDT EPIC results best viewed via link to PDF [facility] Department of Pathology [address] [place] [id number] Note to Patients: This report may contain a detailed description of human tissue sent by a health care provider to the laboratory for pathologic evaluation. The content of this report is essential for diagnosis and may provide important critical findings. This information may be unfamiliar to patients to review without a medical professional present. It is advised that the patient review this report in the presence of a health care provider who can answer questions and explain the details. Final Report Patient Name: BREANNE OLEARY Address: [facility] [place] [address] Gender: F : 1975 (Age: 49) Service: Medical Location: [facility] Hospital #: [id number] Patient Type: [facility] Taken: 06/14/2025 Received: 06/15/2025 Accessioned: 06/15/2025 Reported: 06/16/2025 Physician(s):Erma Rangel MD Diagnosis: A. Descending colon, endoscopic biopsy- Active colitis with ischemic features Chronic changes not demonstrated Negative for neoplasia/malignancy Sofi Siddiqui M.D. Report Electronically Reviewed and Signed Out By Sofi Siddiqui M.D. 06/16/2025 09:56:53 Specimen(s) Received: A: Descending colon biopsies Microscopic Description: The procedure report is reviewed. Note is made of a clinical presentation of bloody diarrhea and endoscopy noting left-sided changes consistent with ischemic colitis. Sections demonstrate benign fragments of colonic mucosa showing minimal irregularity of crypt architecture however scattered crypts show intraepithelial neutrophils. Additionally, the surrounding lamina propria is somewhat fibrotic in appearance with extravasated erythrocytes noted in many fragments. One fragment in particular demonstrates dramatically atrophic appearing crypts with changes consistent with surface erosion. Although similar findings can be seen in toxin induced/antibiotic associated colitis, these findings are compatible with ischemic colitis in the appropriate clinical setting. Clinical History: Colitis. Colonoscopy. Gross Description: The specimen is submitted in a single formalin filled container labeled BREANNE OLEARY and descending colon biopsies. It is 5 lundberg tissue fragments between 1 and 3 mm. All in one cassette. Kina Eubanks R.N., P.A./Cody Radford MD PhD REPORT IMAGES AND SCANNED DOCUMENTS, IF INCLUDED, ONLY VIEWABLE IN PDF VERSION OF REPORT The performance characteristics of some immunohistochemical stains, fluorescence in-situ hybridization tests and immunophenotyping by flow cytometry cited in this report (if any) were determined by the Surgical Pathology Department at [facility] as part of an ongoing quality assistant program and in compliance with federally mandated regulations drawn from the Clinical Laboratory Improvement Act of 1988 (CLIA '). Some of these tests rely on the use of analyte specific reagents and are subject to specific labeling requirements by the [place] Food and Drug Administration. Such diagnostic tests may only be performed in a facility that is certified by the Department of Health and Human Services as a high complexity laboratory under CLIA '88. The FDA has determined that such clearance or approval is not necessary. This test is used for clinical purposes. It should not be regarded as investigational or for research. Nevertheless, federal rules concerning the medical use of analyte specific reagents require that the following disclaimer be attached to the report: This test was developed and its performance characteristics determined by the Surgical Pathology Department [facility]. It has not been cleared or approved by the U. S. Food and Drug Administration. Note for decalcified specimens: This assay has not been validated on decalcified tissues. Results should be interpreted with caution given the possibility of false negativity on decalcified specimens Erma Rangel MD LAB PATHOLOGY ORDERABLES Final R esult Performing Organization Address City/[facility]/ZIP Co de Phone Number PATHOLOGY [facility] ([place]) [address] [place] [address] * (ABNORMAL) Hemoglobin and hematocrit (06/14/2025 5:58 AM CDT) Hgb 11.9 11.9 - 15.5 g/dL Hct 35.1(L) 35.6 - 45.5 % [facility] ([place]) Blood 06/14/2025 5:58 AM CDT 06/14/2025 6:26 AM CDT Maurisio Beach MD LAB BLOOD ORDERABLES Fi nal Result [facility] ([place]) [address] [facility] Department [place] [address] * (ABNORMAL) Hemoglobin and hematocrit (06/14/2025 12:14 AM CDT) Hgb 11.8(L) 11.9 - 15.5 g/dL Hct 34.2(L) 35.6 - 45.5 % [facility] ([place]) Blood 06/14/2025 12:1 4 AM CDT 06/14/2025 12:17 AM CDT Maurisio Beach MD LAB BLOOD ORDERABLES Fi nal Result [facility] ([place]) [address] [facility] [email or web address] [address] * ECG 12 lead (06/13/2025 10:20 PM CDT) 06/13/2025 10:2 0 PM CDT Narrative [facility] - 06/14/2025 7:42 AM CDT Vent Rate: 69 bpm RR Interval: 866 msec MO Interval: 187 msec QRS Duration: 88 msec QT Interval: 390 msec QTC Interval: 409 msec P-R-T Center Line: 44 - 44 - 37 degrees IMPRESSION: SINUS RHYTHM NONSPECIFIC T-WAVE ABNORMALITY BORDERLINE ECG Electronically Signed By: Viraj Kingston MD Maurisio Beach MD ECG ORDERABLES Final R esult Performing Organization Address [facility] Co de Phone Number [facility] [employer] [facility] [email or web address]] * (ABNORMAL) Hemoglobin and hematocrit (06/13/2025 5:52 PM CDT) Hgb 11.8(L) 11.9 - 15.5 g/dL Hct 33.8(L) 35.6 - 45.5 % [facility] ([place]) Blood 06/13/2025 5:52 PM CDT 06/13/2025 6:03 PM CDT Maurisio Beach MD LAB BLOOD ORDERABLES Fi nal Result Performing Organization Address City/[facility]/ZIP Co de Phone Number [facility] ([place]) [address] [facility] [email or web address] [address] * (ABNORMAL) Hemoglobin and hematocrit (06/13/2025 12:01 PM CDT) Hgb 12.3 11.9 - 15.5 g/dL Hct 35.4(L) 35.6 - 45.5 % [facility] ([place]) Blood 06/13/2025 12:0 1 PM CDT 06/13/2025 12:16 PM CDT us Maurisio Beach MD LAB BLOOD ORDERABLES Fi nal Result Performing Organization Address City/[facility]/ZIP Co de Phone Number [facility] ([place]) [address] [facility] [facility] [employer] [email or web address] [place] [address] * eGFR (06/13/2025 6:07 AM CDT) eGFR 83 >=60 mL/min/1. 73 m2 Comment: Interpretive Data Reference Interval Normal >/= 90 mL/min/1.73m2 Mildly decreased* 60 - 89 mL/min/1.73m2 Mildly to moderately decreased 45 - 59 mL/min/1.73m2 Moderately to severely decreased 30 - 44 mL/min/1.73m2 Severely decreased 15 - 29 mL/min/1.73m2 Kidney Failure < 15 mL/min/1.73m2 *Relative to young adult level Estimated glomerular filtration rate is determined by the 2020 CKD-EPI equation recommended by the National Kidney Foundation (A Unifying Approach to GFR Estimation: Recommendations of the NKF-ASK Task Force on Reassessing the Inclusion of Race in Diagnosing Kidney Disease, JASN 2020). The CKD-EPI equation should not be used for patients with unstable renal function and has not been validated in children and those over 70. Current interpretive data was last reviewed 2021. Blood 06/13/2025 6:07 AM CDT 06/13/2025 6:16 AM CDT us Kathy WEAVER LAB BLOOD ORDERABLES Rhea l Result [facility] [place]) 1 [facility] [email or web address] [place] [address] * Differential, auto (06/13/2025 6:07 AM CDT) Neutrophil abs 3.43 1.50 - 6.50 K/cumm Imm gran abs 0.02 0.00 - 0.10 K/cumm [facility] ([place]) Lymphocyte abs 1.49 0.80 - 3.30 K/cumm [facility] ([place]) Monocyte abs 0.55 0.20 - 0.80 K/cumm [facility] ([place]) Eosinophil abs 0.13 0.00 - 0.50 K/cumm [facility] ([place]) Basophil abs 0.04 0.00 - 0.10 K/cumm [facility] ([place]) Neutrophil pct 60.6 % [facility] R [facility] ([place]) Comment: Interpretive Data Percent cell count reference ranges are not reported, since discordance with absolute values may lead to misinterpretation of CBC data. Current Interpretive Data was last revised on 2018. Imm gran pct 0.4 % [facility] ([place]) Comment: Interpretive Data Percent cell count reference ranges are not reported, since discordance with absolute values may lead to misinterpretation of CBC data. Current Interpretive Data was last revised on 2018. Lymphocyte pct 26.3 % [facility] ([place]) Comment: Interpretive Data Percent cell count reference ranges are not reported, since discordance with absolute values may lead to misinterpretation of CBC data. Current Interpretive Data was last revised on 2018. Monocyte pct 9.7 % [facility] ([place]) Comment: Interpretive Data Percent cell count reference ranges are not reported, since discordance with absolute values may lead to misinterpretation of CBC data. Current Interpretive Data was last revised on 2018. Eosinophil pct 2.3 % [facility] ([place]) Comment: Interpretive Data Percent cell count reference ranges are not reported, since discordance with absolute values may lead to misinterpretation of CBC data. Current Interpretive Data was last revised on 2018. Basophil pct 0.7 % [facility] ([place]) Comment: Interpretive Data Percent cell count reference ranges are not reported, since discordance with absolute values may lead to misinterpretation of CBC data. Current Interpretive Data was last revised on 2018. Blood 06/13/2025 6:07 AM CDT 06/13/2025 6:16 AM CDT Kathy WEAVER LAB BLOOD ORDERABLES Rhea l Result [facility] ([place]) 1 [facility] [place] [address] * CBC with auto differential (06/13/2025 6:07 AM CDT) WBC 5.66 3.80 - 9.90 K/cumm Hgb 12.4 11.9 - 15.5 g/dL [facility] ([place]) Hct 36.5 35.6 - 45.5 % [facility] ([place]) Plt 161 150 - 400 K/cumm [facility] ([place]) MPV 10.0 9.1 - 12.3 fL [facility] ([place]) RBC 3.90 3.90 - 5.20 M/cumm [facility] ([place]) MCV 93.6 81.3 - 96.4 fL [facility] ([place]) MCH 31.8 27.1 - 33.3 pg [facility] ([place]) MCHC 34.0 32.3 - 35.7 g/dL [facility] ([place]) RDW CV 12.3 11.1 - 14.9 % [facility] ([place]) RDW SD 42.2 35.7 - 48.1 fL [facility] ([place]) NRBC abs 0.00 0.00 - 0.01 K/cumm [facility] ([place]) Blood 06/13/2025 6:07 AM CDT 06/13/2025 6:16 AM CDT Kathy WEAVER LAB BLOOD ORDERABLES Rhea cm Result ENEDELIA PACK ([place]) 1 [facility] Department [place] [address] * (ABNORMAL) Comprehensive metabolic panel (06/13/2025 6:07 AM CDT) Sodium 140 135 - 145 mmol/L [facility] ([place]) Potassium, pl 3.4 3.3 - 4.9 mmol/L [facility] ([place]) Chloride 109 97 - 110 mmol/L [facility] ([place]) CO2 20(L) 22 - 32 mmol/L [facility] ([place]) Anion gap 11 2 - 15 mmol/L [facility] ([place]) BUN 8 6 - 25 mg/dL [facility] ([place]) Creatinine 0.86 0.60 - 1.10 mg/dL [facility] ([place]) Glucose 78 70 - 199 mg/dL [facility] ([place]) Comment: Interpretive Data Fasting glucose >/= 126 mg/dl is diagnostic for diabetes. Fasting is defined as no caloric intake for at least 8 hours. Fasting glucose between 100 mg/dl to 125 mg/dl is diagnostic of prediabetes. In a patient with classic symptoms of hyperglycemia or hyperglycemic crisis, a random glucose >/= 200 mg/dl is diagnostic for diabetes. In the absence of unequivocal hyperglycemia, results should be confirmed by repeat testing. The classification and Diagnosis of Diabetes Diabetes Care 2021; 46: S19-S40. Current interpretive data was last revised 2022. Calcium 8.7 8.5 - 10.3 mg/dL [facility] ([place]) Bilirubin, total 0.5 0.1 - 1.2 mg/dL [facility] ([place]) Protein, pl 5.5(L) 6.5 - 8.5 g/dL [facility] ([place]) Albumin 3.5 3.5 - 5.0 g/dL [facility] ([place]) Alk phos 46 40 - 130 Units/L [facility] ([place]) ALT 17 7 - 45 Units/L [facility] ([place]) AST 25 10 - 45 Units/L [facility] ([place]) Comment:Hemolysis present. R esults may be affected. Blood 06/13/2025 6:07 AM CDT 06/13/2025 6:16 AM CDT us Kathy WEAVER LAB BLOOD ORDERABLES Rhea l Result [facility] 1 [facility] [place] [address] * Hemoglobin and hematocrit (06/13/2025 12:20 AM CDT) [facility] Hgb 12.9 11.9 - 15.5 g/dL Hct 37.9 35.6 - 45.5 % [facility] ([place]) Blood 06/13/2025 12:2 0 AM CDT 06/13/2025 12:23 AM CDT us Maurisio Beach MD LAB BLOOD ORDERABLES Fi nal Result Performing Organization Address City/[facility]/ZIP Co de Phone Number ENEDELIA PACK ([place]) 1 [place] [address] * C. difficile testing Stool (06/12/2025 8:15 PM CDT) [facility] GDH Result Negative Negative Toxin Result Negative Negative [facility] ([place]) C. diff result Negative, free toxin Negative, free toxin [facility] ([place]) C. diff interp Negative for toxigenic Clostridioides (Clostridium) difficile. Analysis was performed using a glutamate dehydrogenase antigen detection assay combined with a C. difficile toxin detection assay. [facility] ([place]) Stool 06/12/2025 8:15 PM CDT 06/12/2025 9:16 PM CDT us Erma Rangel MD LAB MICROBIOLOGY - GENERAL ORDER [place] Final Result ENEDELIA PACK ([place]) 1 [place] [address] * (ABNORMAL) Calprotectin, fecal (06/12/2025 8:15 PM CDT) [facility] Calprotectin, fecal 1257(H) <50.0 (Normal) mcg/g [place] [facility] Comment: Interpretation: Abnormal (>120 mcg/g) Test Performed by: [facility] [address] [place] [id number] [employer] Machine Operator: Leigh Solo Ph.D.; CLIA# [id number] Stool 06/12/2025 8:15 PM CDT 06/12/2025 9:17 PM CDT Erma Rangel MD LAB BODY FLUIDS AND STOOLS ORDER [place] Final Result Performing Organization Address City/[facility]/ZIP Co de Phone Number ENEDELIA PACK ([place]) 1 [place] [address] [facility] * Cryptosporidium and Giardia antigen assay Stool (06/12/2025 8:15 PM CDT) Giardia Ag Negative Negative Comment:Testing performed by : [address] [address] Cryptosporidium Ag Negative Negative Clint PACK ([place]) Comment: Interpretive data: Testing performed by the [facility] using an immunoassay that detects Cryptosporidium and Giardia antigens in stool specimens. If comprehensive examination for ova and parasites is required, please request Ova and Parasite Examination. Testing performed by: [facility], [address] [place] [address]., [id number] Stool 06/12/2025 8:15 PM CDT 06/13/2025 12:06 AM CDT Erma Rangel MD LAB MICROBIOLOGY - GENERAL ORDER [place] Final Result Performing Organization Address City/[facility] Co de Phone Number SATHYAKHLOE PACK ([place]) 1 [place] [address] * Stool culture Stool Rectum (06/12/2025 8:15 PM CDT) Direct Specimen Exam Shiga Toxin Testing: Antigen detection assay for Shiga-toxin NEGATIVE for Shiga Toxin 1 and Shiga Toxin 2. Comment:Testing performed by : [address], [address] Report Final Report: No growth of enteric bacterial pathogens EN[facility]ELIA [facility] ([place]) Comment:Testing performed by : [address] [facility] [address], [place]., [address] Stool (Rectum) 06/12/2025 8: 15 PM CDT 06/13/2025 12:02 AM CDT Narrative ENEDELIA PACK ([place]) - 06/17/2025 11:14 AM CDT Testing performed by [facility] ([phone]). Routine stool cultures include procedures to detect Salmonella, Shigella, Edwardsiella, Aeromonas, Pleisiomonas, Campylobacter, Yersinia, E. coli O157, and Shiga-like toxins. Vibrio is cultured only upon special request. If Vibrio is suspected, please call the laboratory at [phone]. Interpretive data was last updated March 23, 2017. Erma Rangel MD LAB MICROBIOLOGY - GENERAL ORDER [place] Final Result EN[facility]ELIA PACK ([place]) 1 [facility] Department [place] [address] * (ABNORMAL) Urinalysis reflex to microscopic and culture Urine (06/12/2025 5:07 PM CDT) Color, ur Yellow Yellow Clarity, ur Clear Clear [facility] ([place]) Specific gravity, ur 1.020 1.003 - 1.030 [facility] ([place]) pH, urine 6.0 [facility] ([place]) Comment: Interpretive Data U rine pH is affected by diet, medications, systemic acid-base disturbances, and renal tubular function. pH may affect urinary stone formation. For example, urine pH below 6.0 may help reduce the tendency for calcium phosphate stones and pH greater than 6.0 may reduce the tendency for uric acid stone formation. Source: [facility] [email or web address] Current Interpretive Data was last revised on 2017 Protein, ur ql Negative Negative [facility] ([place]) Glucose, ur ql Negative Negative [facility] ([place]) Ketones, ur Negative Negative [facility] ([place]) Bilirubin, ur Negative Negative [facility] ([place]) Blood, ur Trace(A) Negative [facility] ([place]) Urobilinogen, ur <2.0 <2.0 mg/dL [facility]IA [facility] ([place]) Nitrite, ur Negative Negative ENEDELIA A ([place]) Leukocyte esterase, ur Negative Negative [facility] ([place]) UA reflex comment Reflex to microscopic UA will be performed. [facility] ([place]) Urine 06/12/2025 5:07 PM CDT 06/12/2025 5:13 PM CDT Kathy WEAVER LAB MICROBIOLOGY - GENERA L ORDERABLES Final Result Performing Organization Address [facility] Co de Phone Number EN[facility]IA [facility] ([place]) 1 [facility] [email or web address] [address] * (ABNORMAL) Urinalysis, microscopic only (06/12/2025 5:07 PM CDT) WBC, ur 0-5 0 - 5 /HPF RBC, ur 0-2 0 - 2 /HPF [facility]IA [facility] ([place]) Epithelial cells, squamous, ur 1-5 0 - 5 /HPF [facility]IA [facility] ([place]) Mucous, ur Present(A) ENEDELIA Barbosa ([place]) Culture Reflex Comment Reflex conditions for urine culture (WBC >10) not met. [facility] ([place]) Urine 06/12/2025 5:07 PM CDT 06/12/2025 5:13 PM CDT Kathy WEAVER LAB URINE ORDERABLES Rhea l Result Performing Organization Address [facility] Co de Phone Number [facility]IA [facility] ([place]) 1 [facility] [email or web address] [address] * Hemoglobin and hematocrit (06/12/2025 12:55 PM CDT) Hgb 13.2 11.9 - 15.5 g/dL Hct 38.8 35.6 - 45.5 % [facility] ([place]) Blood 06/12/2025 12:5 5 PM CDT 06/12/2025 12:57 PM CDT us Kathy WEAVER LAB BLOOD ORDERABLES Rhea cm Result [facility] [place]) 9 [facility] [place] [address] * CTA Abdomen Pelvis (06/12/2025 10:30 AM CDT) Anatomical Region Laterality Modality Body N/A Computed Tomogra phy 06/12/2025 11:2 5 AM CDT Narrative 06/12/2025 11:46 AM CDT EXAM DESCRIPTION: CTA ABDOMEN PELVIS REASON FOR STUDY: Lower GI bleed Abdominal pain and vomiting, bloody diarrhea TECHNIQUE: CTA scan of the abdomen and pelvis performed without and with intravenous and without oral contrast using helical scanning technique with dynamic intravenous contrast injection. Precontrast, and arterial phase images of the abdomen and pelvis were acquired. Additionally portal venous phase images of the abdomen were acquired. Images reviewed with lung, soft tissue and bone windows. Reconstructed coronal and sagittal MPR images reviewed. All images stored on PACS. 3D MIP images rendered on scanning unit and reviewed at time of interpretation. Automated exposure control was used as a dose optimization technique for this examination. CONTRAST TYPE/DOSE: 100mL of IOVERSOL 350 MG IODINE/ML INTRAVENOUS SYRINGE injected via intravenous COMPARISON: None FINDINGS: VASCULATURE: No dissection, aneurysm, intramural hematoma, rupture, or penetrating atherosclerotic ulcer. No large vessel occlusion. CELIAC TRUNK: No flow limiting stenosis, dissection, or aneurysm. SUPERIOR MESENTERIC ARTERY: No flow limiting stenosis, dissection, or aneurysm. RIGHT RENAL ARTERY: No flow limiting stenosis, dissection, or aneurysm. LEFT RENAL ARTERY: No flow limiting stenosis, dissection, or aneurysm. INFERIOR MESENTERIC ARTERY: No flow limiting stenosis, dissection, or aneurysm. AORTA: No flow limiting stenosis, dissection, or aneurysm. ILIAC ARTERIES: No flow limiting stenosis, dissection, or aneurysm. LOWER CHEST: No significant pulmonary abnormalities. No effusion. LIVER: Normal size. No identified cystic or solid masses. GALLBLADDER: No stones identified. No wall thickening or inflammatory changes. BILE DUCTS: No intrahepatic or extrahepatic ductal dilatation. SPLEEN: Normal size. No focal lesions. PANCREAS: No identified cystic or solid masses. No significant calcifications. No adjacent inflammation or peripancreatic fluid collections. Pancreatic duct not dilated. ADRENALS: Normal. KIDNEYS/URINARY TRACT: There is a 2.6 cm cyst in the interpolar region of the left kidney. Right kidney is unremarkable. No hydronephrosis or hydroureter. Normal bladder. GI: Stomach is decompressed. No dilated or thick-walled loops of small bowel. No sign of appendicitis. There is thickening of the transverse, descending, sigmoid colon, and possibly the rectum. There is minimal stranding adjacent to the distal descending colon. No diverticula appreciated. No definite active GI bleeding is appreciated. It should be noted that the delayed phase of contrast only imaged the abdomen, and not the pelvis, which excludes the distal descending colon and sigmoid colon as well as portions of the small bowel within the pelvis. On the arterial phase in the pelvis there are a few linear areas of hyperenhancement within the distal descending colon which are favored to represent enhancing vasculature. PERITONEUM: No ascites or free air. RETROPERITONEUM: No mass or adenopathy. REPRODUCTIVE: No significant abnormality. MUSCULOSKELETAL: No significant abnormality. OTHER: No other abnormality. IMPRESSION: 1. No definite active GI bleeding is appreciated, allowing for limitations of the exam. It should be noted that this study was run as a CTA aortic dissection protocol and not the GI bleeding protocol and the delayed phase of contrast only imaged the abdomen, and not the pelvis. This excludes the distal descending colon and sigmoid colon as well as portions of the small bowel within the pelvis on the delayed phase. On the arterial phase in the pelvis there are a few linear areas of hyperenhancement within the distal descending colon which are favored to represent enhancing vasculature. 2. Thickening of the transverse, descending, sigmoid colon, and possibly the rectum. There is minimal stranding adjacent to the distal descending colon. Findings are most consistent with colitis. THIS IS AN ELECTRONICALLY VERIFIED FINAL REPORT 06/12/2025 11:46 AM - Electronically signed by Aguilar Beltrán M.D. AM: AM Report ID: [id number] Reading Location: [id number] Procedure Note Aguilar Beltrán MD - 06/12/2025 EXAM DESCRIPTION: CTA ABDOMEN PELVIS REASON FOR STUDY: Lower GI bleed Abdominal pain and vomiting, bloody diarrhea TECHNIQUE: CTA scan of the abdomen and pelvis performed without and with intravenous and without oral contrast using helical scanning techniquewith dynamic intravenous contrast injection. Precontrast, and arterial phase images of the abdomen and pelvis were acquired. Additionally portalvenous phase images of the abdomen were acquired. Images reviewed with lung,soft tissue and bone windows. Reconstructed coronal and sagittal MPR images reviewed. All images stored on PACS. 3D MIP images rendered on scanningunit and reviewed at time of interpretation. Automated exposure control wasused as a dose optimization technique for this examination. CONTRAST TYPE/DOSE: 100mL of IOVERSOL 350 MG IODINE/ML INTRAVENOUSSYRINGE injected via intravenous COMPARISON: None FINDINGS: VASCULATURE: No dissection, aneurysm, intramural hematoma, rupture, or penetrating atherosclerotic ulcer. No large vessel occlusion. CELIAC TRUNK: No flow limiting stenosis, dissection, or aneurysm. SUPERIOR MESENTERIC ARTERY: No flow limiting stenosis, dissection, or aneurysm. RIGHT RENAL ARTERY: No flow limiting stenosis, dissection, or aneurysm. LEFT RENAL ARTERY: No flow limiting stenosis, dissection, or aneurysm. INFERIOR MESENTERIC ARTERY: No flow limiting stenosis, dissection, or aneurysm. AORTA: No flow limiting stenosis, dissection, or aneurysm. ILIAC ARTERIES: No flow limiting stenosis, dissection, or aneurysm. LOWER CHEST: No significant pulmonary abnormalities. No effusion. LIVER: Normal size. No identified cystic or solid masses. GALLBLADDER: No stones identified. No wall thickening or inflammatory changes. BILE DUCTS: No intrahepatic or extrahepatic ductal dilatation. SPLEEN: Normal size. No focal lesions. PANCREAS: No identified cystic or solid masses. No significant calcifications. No adjacent inflammation or peripancreatic fluidcollections. Pancreatic duct not dilated. ADRENALS: Normal. KIDNEYS/URINARY TRACT: There is a 2.6 cm cyst in the interpolar regionof the left kidney. Right kidney is unremarkable. No hydronephrosis or hydroureter. Normal bladder. GI: Stomach is decompressed. No dilated or thick-walled loops of small bowel. No sign of appendicitis. There is thickening of the transverse, descending, sigmoid colon, and possibly the rectum. There is minimal stranding adjacent to the distal descending colon. No diverticula appreciated. No definite active GI bleeding is appreciated. It shouldbe noted that the delayed phase of contrast only imaged the abdomen, and notthe pelvis, which excludes the distal descending colon and sigmoid colon aswell as portions of the small bowel within the pelvis. On the arterial phasein the pelvis there are a few linear areas of hyperenhancement within thedistal descending colon which are favored to represent enhancing vasculature. PERITONEUM: No ascites or free air. RETROPERITONEUM: No mass or adenopathy. REPRODUCTIVE: No significant abnormality. MUSCULOSKELETAL: No significant abnormality. OTHER: No other abnormality. IMPRESSION: 1. No definite active GI bleeding is appreciated, allowing forlimitations of the exam. It should be noted that this study was run as a CTA aortic dissection protocol and not the GI bleeding protocol and the delayed phaseof contrast only imaged the abdomen, and not the pelvis. This excludes the distal descending colon and sigmoid colon as well as portions of the small bowel within the pelvis on the delayed phase. On the arterial phase inthe pelvis there are a few linear areas of hyperenhancement within the distal descending colon which are favored to represent enhancing vasculature. 2. Thickening of the transverse, descending, sigmoid colon, and possiblythe rectum. There is minimal stranding adjacent to the distal descendingcolon. Findings are most consistent with colitis. THIS IS AN ELECTRONICALLY VERIFIED FINAL REPORT 06/12/2025 11:46 AM - Electronically signed by Aguilar Beltrán M.D. AM: AM Report ID: [id number] Reading Location: [place] [address] PROCEDURES Final R esult * ABO / Rh Confirmation Testing (06/12/2025 9:20 AM CDT) ABO/Rh Confirmation O Positive [facility] Blood 06/12/2025 9:20 AM CDT 06/12/2025 9:23 AM CDT us Greg Villafana MD LAB BLOOD ORDERABLES Final Result ENEDELIA PACK ([place]) 1 [facility] Department [place] [address] [place] * aPTT (06/12/2025 9:20 AM CDT) aPTT 31 28 - 38 sec ENEDELIA PACK ([place]) Comment: Interpretive Data Heparin therapeutic range: 66.0 - 100.0 seconds. Range based on correlation with therapeutic heparin activity range of 0.3 - 0.7 Units/mL. Current interpretive data was last revised on 2023. Blood 06/12/2025 9:20 AM CDT 06/12/2025 9:23 AM CDT Kathy WEAVER LAB BLOOD ORDERABLES Rhea l Result Performing Organization Address City/[facility] Co de Phone Number ENEDELIA PACK ([place]) 1 [facility] [place] [address] * Protime-INR (06/12/2025 9:20 AM CDT) PT 11.3 9.7 - 13.0 sec ENEDELIA PACK ([place]) INR 1.05 0.90 - 1.20 EN[facility]ELIA [facility] ([place]) Comment: Interpretive data Oral anticoagulant therapeutic ranges: Venous thromboembolism prophylaxis or treatment: 2.0-3.0 CARDIOLOGY Standard range: 2.0-3.0 High-intensity range: 2.5-3.5 Refer to indication-specific guidelines for appropriate target ranges for prosthetic heart valve replacement. Current interpretive data was last revised on 2019. Blood 06/12/2025 9:20 AM CDT 06/12/2025 9:23 AM CDT Kathy WEAVER LAB BLOOD ORDERABLES Rhea l Result Performing Organization Address City/[facility] Co de Phone Number ENEDELIA PACK ([place]) 1 [facility] [place] [address] * eGFR (06/12/2025 8:25 AM CDT) eGFR 77 >=60 mL/min/1. 73 m2 Comment: Interpretive Data Reference Interval Normal >/= 90 mL/min/1.73m2 Mildly decreased* 60 - 89 mL/min/1.73m2 Mildly to moderately decreased 45 - 59 mL/min/1.73m2 Moderately to severely decreased 30 - 44 mL/min/1.73m2 Severely decreased 15 - 29 mL/min/1.73m2 Kidney Failure < 15 mL/min/1.73m2 *Relative to young adult level Estimated glomerular filtration rate is determined by the 2020 CKD-EPI equation recommended by the National Kidney [employer] (A Unifying Approach to GFR Estimation: Recommendations of the NKF-ASK Task Force on Reassessing the Inclusion of Race in Diagnosing Kidney Disease, JASN 2020). The CKD-EPI equation should not be used for patients with unstable renal function and has not been validated in children and those over 70. Current interpretive data was last reviewed 2021. Blood 06/12/2025 8:25 AM CDT 06/12/2025 8:28 AM CDT us Kelli Ceballos MD LAB BLOOD ORDERABLES Final Re sult [facility] ([place]) 1 [facility] Department [place] [address] * Differential, auto (06/12/2025 8:25 AM CDT) Neutrophil abs 5.19 1.50 - 6.50 K/cumm Imm gran abs 0.02 0.00 - 0.10 K/cumm [facility] ([place]) Lymphocyte abs 1.27 0.80 - 3.30 K/cumm [facility] ([place]) Monocyte abs 0.62 0.20 - 0.80 K/cumm [facility] ([place]) Eosinophil abs 0.09 0.00 - 0.50 K/cumm [facility] ([facility]) Basophil abs 0.05 0.00 - 0.10 K/cumm [facility] ([place]) Neutrophil pct 71.7 % [facility] ([facility]) Comment: Interpretive Data Percent cell count reference ranges are not reported, since discordance with absolute values may lead to misinterpretation of CBC data. Current Interpretive Data was last revised on 2018. Imm gran pct 0.3 % [facility] ([facility]) Comment: Interpretive Data Percent cell count reference ranges are not reported, since discordance with absolute values may lead to misinterpretation of CBC data. Current Interpretive Data was last revised on 2018. Lymphocyte pct 17.5 % [facility] ([facility]) Comment: Interpretive Data Percent cell count reference ranges are not reported, since discordance with absolute values may lead to misinterpretation of CBC data. Current Interpretive Data was last revised on 2018. Monocyte pct 8.6 % [facility] ([facility]) Comment: Interpretive Data Percent cell count reference ranges are not reported, since discordance with absolute values may lead to misinterpretation of CBC data. Current Interpretive Data was last revised on 2018. Eosinophil pct 1.2 % [facility] ([facility]) Comment: Interpretive Data Percent cell count reference ranges are not reported, since discordance with absolute values may lead to misinterpretation of CBC data. Current Interpretive Data was last revised on 2018. Basophil pct 0.7 % [facility] ([facility]) Comment: Interpretive Data Percent cell count reference ranges are not reported, since discordance with absolute values may lead to misinterpretation of CBC data. Current Interpretive Data was last revised on 2018. Blood 06/12/2025 8:25 AM CDT 06/12/2025 8:28 AM CDT us Kelli Ceballos MD LAB BLOOD ORDERABLES Final Re sult [facility] ([place]) [facility] Department of Laboratories [place], [place] [id number] * CBC with auto differential (06/12/2025 8:25 AM CDT) WBC 7.24 3.80 - 9.90 K/cumm Hgb 14.5 11.9 - 15.5 g/dL [facility] ([facility]) Hct 41.8 35.6 - 45.5 % [facility] ([facility]) Plt 193 150 - 400 K/cumm [facility] ([place]) MPV 10.0 9.1 - 12.3 fL [facility] ([facility]) RBC 4.52 3.90 - 5.20 M/cumm [facility] ([place]) MCV 92.5 81.3 - 96.4 fL [facility] ([facility]) MCH 32.1 27.1 - 33.3 pg [facility] MCHC 34.7 32.3 - 35.7 g/dL [facility] ([place]) RDW CV 12.2 11.1 - 14.9 % [facility] ([facility]) RDW SD 41.5 35.7 - 48.1 fL [facility] NRBC abs 0.00 0.00 - 0.01 K/cumm [facility] Blood 06/12/2025 8:25 AM CDT 06/12/2025 8:28 AM CDT Kelli Ceballos MD LAB BLOOD ORDERABLES Final Re sult Performing Organization Address City/[facility]/ZIP Co de Phone Number [facility] ([place]) [address] [facility] [place] [address] * ABO/Rh (06/12/2025 8:25 AM CDT) ABO/Rh O Positive Blood 06/12/2025 8:25 AM CDT 06/12/2025 8:28 AM CDT Narrative [facility] ([place]) - 06/12/2025 9:03 AM CDT Has the patient had Daratumumab or Isatuximab in the past 6 months?->Unknown Kelli Ceballos MD LAB BLOOD BANK TEST ORDERABLE S Final Result [facility] ([place]) [address] [facility] [place] [address] * Antibody screen (06/12/2025 8:25 AM CDT) Yazmin, indirect, Gel Interpretation Negative ABSC Blood 06/12/2025 8:25 AM CDT 06/12/2025 8:28 AM CDT Narrative [facility] ([place]) - 06/12/2025 9:03 AM CDT Has the patient had Daratumumab or Isatuximab in the past 6 months?->Unknown us Kelli Ceballos MD LAB BLOOD BANK TEST ORDERABLE S Final Result [facility] ([place]) 1 [facility] Department [place] [address] * (ABNORMAL) Comprehensive metabolic panel (06/12/2025 8:25 AM CDT) Sodium 140 135 - 145 mmol/L [facility] ([place]) Potassium, pl 3.6 3.3 - 4.9 mmol/L [facility] ([place]) Chloride 107 97 - 110 mmol/L [facility] ([facility]) CO2 20(L) 22 - 32 mmol/L [facility] ([place]) Anion gap 13 2 - 15 mmol/L [facility] ([place]) BUN 18 6 - 25 mg/dL [facility] ([place]) Creatinine 0.92 0.60 - 1.10 mg/dL [facility] ([facility]) Glucose 91 70 - 199 mg/dL [facility] ([facility]) Comment: Interpretive Data Fasting glucose >/= 126 mg/dl is diagnostic for diabetes. Fasting is defined as no caloric intake for at least 8 hours. Fasting glucose between 100 mg/dl to 125 mg/dl is diagnostic of prediabetes. In a patient with classic symptoms of hyperglycemia or hyperglycemic crisis, a random glucose >/= 200 mg/dl is diagnostic for diabetes. In the absence of unequivocal hyperglycemia, results should be confirmed by repeat testing. The classification and Diagnosis of Diabetes Diabetes Care 2021; 46: S19-S40. Current interpretive data was last revised 2022. Calcium 9.5 8.5 - 10.3 mg/dL [facility] ([place]) Bilirubin, total 0.5 0.1 - 1.2 mg/dL [facility] ([place]) Protein, pl 6.6 6.5 - 8.5 g/dL [facility] ([place]) Albumin 4.3 3.5 - 5.0 g/dL [facility] ([facility]) Alk phos 51 40 - 130 Units/L [facility] ([facility]) ALT 23 7 - 45 Units/L [facility] ([facility]) AST 23 10 - 45 Units/L [facility] ([facility]) Comment:Hemolysis present. R esults may be affected. Blood 06/12/2025 8:25 AM CDT 06/12/2025 8:28 AM CDT Kelli Ceballos MD LAB BLOOD ORDERABLES Final Re sult [facility] ([place]) 1 [facility] Department [place] [address] * Screening Mammogram Bilateral W Raudel (02/23/2023 12:59 PM CDT) Anatomical Region Laterality Modality Breast Bilateral Mammography 02/23/2023 1:06 PM CDT Impressions 02/23/2023 1:06 PM CDT There is no mammographic evidence of malignancy. A 1 year screening mammogram is recommended. BI-RADS: 2 - Benign. The patient has been or will be contacted. The patient will be entered into a reminder system with a target due date of 1 year for her next mammogram. Electronically signed by: Hu Raines M.D. Narrative 02/23/2023 1:06 PM CDT EXAMINATION: SCREENING MAMMOGRAM BILATERAL W RAUDEL ORDERING HEALTHCARE PROVIDER: SELF SCREENING MAMMOGRAM HISTORY: Routine screening mammography. COMPARISON: 07/27/2020, 09/18/2016 TECHNIQUE: CC and MLO views of the bilateral breasts were obtained with digital technique using breast tomosynthesis with C view. Computer aided detection was utilized. FINDINGS: DENSITY: There are scattered fibroglandular elements in the bilateral breasts. BREASTS: There are small benign-appearing oval circumscribed fluctuating masses in both breasts, most likely benign fluctuating cysts. There are no suspicious masses, suspicious calcifications, or other suspicious findings in either breast. There has been no suspicious interval change. Self Screening Mammogram IMG MAMMO PROCEDURES Fi nal Result from Last 3 Months or Most Recently Relevant to Health Maintenance Insurance [facility] Member Subscriber Plan / Payer (Ef fective 2023-Present) Name:Breanne Oleary Relation to Subscriber:Spouse Name:KIMBERLI OLEARY Date of :1960 Address: [facility] [place] [address] Payer ID:[id number] (NAIC) Group ID:[id number] Type:HEALTHCARE/EXCHANGE Address: [address] [facility] Advance Directives For more information, please contact: [phone] * Full Code (Latest Code Status on File) Date Activated Date Inactivated Comments 06/14/2025 11:07 AM 06/14/2025 9:42 PM * Full Code Date Activated Date Inactivated Comments 06/12/2025 4:25 PM 06/14/2025 11:07 AM * Full Code Date Activated Date Inactivated Comments 02/18/2022 7:47 AM 02/18/2022 1:36 PM * Full Code Date Activated Date Inactivated Comments 02/18/2022 7:47 AM 02/18/2022 7:47 AM Care Teams Clinical Exercise Physiologist Relationship Specialty Start Date End Date Kobe Christiansen MD [address] [place] [address] PCP - General Internal Medicine 06/12/25 Erma Rangel MD [address] [address] Consulting Physician Gastroenterology 06/14/25
--- OUTSIDE RECORDS SUMMARY | 2025-08-14 14:47 | XMS_ITS | Data Portability ---
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 Plan of Treatment Reminders Order Date Submit Date Provider Last Modified By Organization Details Last Modified Time Details Appointments None recorded. Lab CMP, serum or plasma 2023 024 [facility], [address] [place] [address], [place], [address], 4 09:13:10 CBC w/ auto diff 2023 024 [facility], [address] [place] [address] 2, [place], [address], 4 09:13:13 lipid panel, serum 2023 024 [facility], [address] [place] [address] 2, [place], [address], 4 09:13:09 TSH, ultra-sensi tive, serum 2023 024 [facility], [address] [place] [address] 2, [place], [address], 4 09:13:12 Referral sleep medicine referral 2023 024 [email or web address] Maurice Millan MD, [address] [facility], Third Floor, [place], [address], 4 11:38:23 clinical therapist referral 2023 024 [email or web address] Mary Guevara [facility], [address] [place], [address], 4 12:25:32 Procedures None recorded. Surgeries None recorded. Imaging None recorded. Medication Orders Mounjaro 2.5 mg/0.5 mL subcutaneou s pen injector 2024 025 [facility] #[id number], [address], [place], [place], [id number], 5 09:50:28 venlafaxine ER 75 mg capsule,ext ended release 24 hr 2023 024 [facility] #[id number], [address], [place], [place], [id number], 4 14:21:27 topiramate 50 mg tablet 2023 [id number], [address], [place], [place], [id number], 4 12:56:00 venlafaxine ER 150 mg capsule,ext ended release 24 hr 2023 024 [id number], [address], [place], [place], [id number], 4 12:24:42 bupropion HCl XL 300 mg 24 hr tablet, extended release 2023 024 [id number], [address], [place], [place], [id number], 4 12:56:01 Patient TargetsNo targets recorded. Patient Instructions Encounter Date Encounter Id Patient Instructions Last Modified By Organization Details Last Modified Time 12/30/2023 [id number] A healthy lifestyle: care instructions nsuthan Not available 12/30/2023 12:55:54 f/u in 2month nsuthan Not available 12:52:57 02/29/2024 [id number] A healthy lifestyle: care instructions nsuthan Not available 02/29/2024 12:27:45 f/u in 3month nsuthan Not available 12:29:05 06/17/2024 [id number] A healthy lifestyle: care instructions nsuthan Not available 06/17/2024 10:04:41 f/u in 3 month nsuthan Not available 0 06/17/2024 10:04:51 09/23/2024 [id number] f/u in 4 monht nsuthan Not available 09/23/2024 10:06:13 12/08/2024 [id number] A healthy lifestyle: care instructions nsuthan Not available 12/08/2024 09:50:22 f/u in 3 month nsuthan Not available 0 12/08/2024 09:50:51 Reason for Referral Sleep Medicine Referral for Obstructive sleep apnea syndrome Referring Physician: Cyn Smith, Internal Medicine, Encounter Date: 12/30/2023 Clinical Therapist Referral for Anxiety Referring Physician: Cyn Smith, Internal Medicine, Encounter Date: 12/30/2023 Results Created Date Observation Date Name Description Value Unit Range Abnormal Flag Note LastModifiedBy Organization Detail LastModifiedTime 09/23/2009/24/2024 LIPID PANEL cholesterol, total 251 mg/dL 100-19 9 above high normal Not Available [facility] ([facility]) [address] [facility], [place], [address], 09/24/2024 09:13:09 09/23/2009/24/2024 LIPID PANEL triglyceride s 169 mg/dL 0-149 above high normal Not Available [facility] ([facility]) [address] [facility], [place], [address], 09/24/2024 09:13:09 09/23/2009/24/2024 LIPID PANEL HDL cholesterol 47 mg/dL >39 Not Available [facility] [address] [facility] [place], [address], 09/24/2024 09:13:09 09/23/2009/24/2024 LIPID PANEL VLDL cholesterol benny 31 mg/dL 5-40 Not Available [facility]) [address] [facility] [place], [address], 09/24/2024 09:13:09 09/23/2009/24/2024 LIPID PANEL LDL chol calc ([facility]) 173 mg/dL 0-99 above high normal Not Available [facility] ([facility]) [address] [facility] [place], [address], 09/24/2024 09:13:09 09/23/2009/24/2024 COMP. METAB OLIC PANEL (14) glucose 90 mg/dL 70-99 Not Available [facility] ([facility]) [address] [facility] [place], [address], 09/24/2024 09:13:10 09/23/2009/24/2024 COMP. METAB OLIC PANEL (14) BUN 13 mg/dL 6-24 Not Available [facility] ([facility]) [address] [facility] [place], [address], 09/24/2024 09:13:10 09/23/20 24 09/24/2024 COMP. METAB OLIC PANEL (14) creatinine 0.95 mg/dL 0.57-1 .00 Not Available [facility] ([facility]) [address] [facility] [place], [address], 09/24/2024 09:13:10 09/23/20 24 09/24/2024 COMP. METAB OLIC PANEL (14) eGFR 74 mL/mi n/1.7 3 >59 Not Available [facility] ([facility]) [address] [facility] [place], [address], 09/24/2024 09:13:10 09/23/20 24 09/24/2024 COMP. METAB OLIC PANEL (14) BUN/creatini ne ratio 14 9-23 Not Available [facility] ([facility]) [address] [facility], [place], [address], 09/24/2024 09:13:10 09/23/20 24 09/24/2024 COMP. METAB OLIC PANEL (14) sodium 140 mmol/ L 134-14 4 Not Available [facility] ([facility]) [address] [facility] [place], [address], 09/24/2024 09:13:10 09/23/20 24 09/24/2024 COMP. METAB OLIC PANEL (14) potassium 4.5 mmol/ L 3.5-5. 2 Not Available [facility] ([facility]) [address] [facility], [place], [address], 09/24/2024 09:13:10 09/23/20 24 09/24/2024 COMP. METAB OLIC PANEL (14) chloride 106 mmol/ L 96-106 Not Available [facility] ([facility]) [address] [facility], [place], [address], 09/24/2024 09:13:10 09/23/20 24 09/24/2024 COMP. METAB OLIC PANEL (14) carbon dioxide, total 24 mmol/ L 20-29 Not Available [facility] ([facility]) [address] [facility], [place], [address], 09/24/2024 09:13:10 09/23/20 24 09/24/2024 COMP. METAB OLIC PANEL (14) calcium 9.5 mg/dL 8.7-10 .2 Not Available [facility] ([facility]) [address] [facility], [place], [address], 09/24/2024 09:13:10 09/23/20 24 09/24/2024 COMP. METAB OLIC PANEL (14) protein, total 6.5 g/dL 6.0-8. 5 Not Available [facility] ([facility]) [address] [facility] [place], [address], 09/24/2024 09:13:10 09/23/20 24 09/24/2024 COMP. METAB OLIC PANEL (14) albumin 4.3 g/dL 3.9-4. 9 Not Available [facility] ([facility]) [address] [facility] [place], [address], 09/24/2024 09:13:10 09/23/20 24 09/24/2024 COMP. METAB OLIC PANEL (14) globulin, total 2.2 g/dL 1.5-4. 5 Not Available [facility] ([facility]) [address] [facility] [place], [address], 09/24/2024 09:13:10 09/23/20 24 09/24/2024 COMP. METAB OLIC PANEL (14) bilirubin, total 0.5 mg/dL 0.0-1. 2 Not Available [facility] ([facility]) [address] [place], [address], 09/24/2024 09:13:10 09/23/20 24 09/24/2024 COMP. METAB OLIC PANEL (14) alkaline phosphatase 57 IU/L 44-121 Not Available [facility]) [address] [place], [address], 09/24/2024 09:13:10 09/23/20 24 09/24/2024 COMP. METAB OLIC PANEL (14) AST (SGOT) 15 IU/L 0-40 Not Available [facility] ([facility]) [address] [place], [address], 09/24/2024 09:13:10 09/23/20 24 09/24/2024 COMP. METAB OLIC PANEL (14) ALT (SGPT) 15 IU/L 0-32 Not Available [facility] ([facility]) [address] [facility], [place], [address], 09/24/2024 09:13:10 09/23/2009/24/2024 TSH TSH 1.250 uIU/m L 0.450- 4.500 Not Available [facility] ([facility]) [address] [facility], [place], [address], 09/24/2024 09:13:12 09/23/2009/24/2024 CBC WITH DIFFE RENTI AL/PL ATELE T WBC 5.0 x10e3 /uL 3.4-10 .8 Not Available [facility] ([facility]) [address] [facility], [place], [address], 09/24/2024 09:13:13 09/23/2009/24/2024 CBC WITH DIFFE RENTI AL/PL ATELE T RBC 4.40 x10e6 /uL 3.77-5 .28 Not Available [facility] ([facility]) [address] [facility], [place], [address], 09/24/2024 09:13:13 09/23/2009/24/2024 CBC WITH DIFFE RENTI AL/PL ATELE T hemoglobin 14.2 g/dL 11.1-1 5.9 Not Available [facility] ([facility]) [address] [facility], [place], [address], 09/24/2024 09:13:13 09/23/2009/24/2024 CBC WITH DIFFE RENTI AL/PL ATELE T hematocrit 42.5 % 34.0-4 6.6 Not Available [facility] ([facility]) [address] [facility], [place], [address], 09/24/2024 09:13:13 09/23/2009/24/2024 CBC WITH DIFFE RENTI AL/PL ATELE T MCV 97 fL 79-97 Not Available [facility] ([facility]) [address] [facility], [place], [address], 09/24/2024 09:13:13 09/23/2009/24/2024 CBC WITH DIFFE RENTI AL/PL ATELE T MCH 32.3 pg 26.6-3 3.0 Not Available [facility] ([facility]) [address] [facility], [place], [address], 09/24/2024 09:13:13 09/23/20 24 09/24/2024 CBC WITH DIFFE RENTI AL/PL ATELE T MCHC 33.4 g/dL 31.5-3 5.7 Not Available [facility] ([facility]) [address] [facility], [place], [address], 09/24/2024 09:13:13 09/23/2009/24/2024 CBC WITH DIFFE RENTI AL/PL ATELE T RDW 12.2 % 11.7-1 5.4 Not Available [facility] ([facility]) [address] [facility], [place], [address], 09/24/2024 09:13:13 09/23/20 24 09/24/2024 CBC WITH DIFFE RENTI AL/PL ATELE T platelets 268 x10e3 /uL 150-45 0 Not Available [facility] ([facility]) [address] [place], [address], 09/24/2024 09:13:13 09/23/2009/24/2024 CBC WITH DIFFE RENTI AL/PL ATELE T neutrophils 56 % notest ab. Not Available [facility] ([facility]) [address] [place], [address], 09/24/2024 09:13:13 09/23/20 24 09/24/2024 CBC WITH DIFFE RENTI AL/PL ATELE T lymphs 29 % notest ab. Not Available [facility] ([facility]) [address] [facility], [place], [address], 09/24/2024 09:13:13 09/23/2009/24/2024 CBC WITH DIFFE RENTI AL/PL ATELE T monocytes 10 % notest ab. Not Available [facility] ([facility]) [address] [facility], [place], [address], 09/24/2024 09:13:13 09/23/2009/24/2024 CBC WITH DIFFE RENTI AL/PL ATELE T eos 3 % notest ab. Not Available [facility] ([facility]) [address] [facility], [place], [address], 09/24/2024 09:13:13 09/23/2009/24/2024 CBC WITH DIFFE RENTI AL/PL ATELE T basos 1 % notest ab. Not Available [facility] ([facility]) [address] [facility], [place], [address], 09/24/2024 09:13:13 09/23/2009/24/2024 CBC WITH DIFFE RENTI AL/PL ATELE T neutrophils (absolute) 2.8 x10e3 /uL 1.4-7. 0 Not Available [facility] ([facility]) [address] [facility], [place], [address], 09/24/2024 09:13:13 09/23/2009/24/2024 CBC WITH DIFFE RENTI AL/PL ATELE T lymphs (absolute) 1.4 x10e3 /uL 0.7-3. 1 Not Available [facility] ([facility]) [address] [facility], [place], [address], 09/24/2024 09:13:13 09/23/2009/24/2024 CBC WITH DIFFE RENTI AL/PL ATELE T monocytes(ab solute) 0.5 x10e3 /uL 0.1-0. 9 Not Available [facility] ([facility]) [address] [facility], [place], [address], 09/24/2024 09:13:13 09/23/2009/24/2024 CBC WITH DIFFE RENTI AL/PL ATELE T eos (absolute) 0.1 x10e3 /uL 0.0-0. 4 Not Available [facility] ([facility]) [address] [facility], [place], [address], 09/24/2024 09:13:13 09/23/2009/24/2024 CBC WITH DIFFE RENTI AL/PL ATELE T baso (absolute) 0.1 x10e3 /uL 0.0-0. 2 Not Available [facility] ([facility]) [address] [facility], [place], [address], 09/24/2024 09:13:13 09/23/2009/24/2024 CBC WITH DIFFE RENTI AL/PL ATELE T immature granulocytes 1 % notest ab. Not Available [facility] ([facility]) [address] [facility], [place], [address], 09/24/2024 09:13:13 09/23/2009/24/2024 CBC WITH DIFFE RENTI AL/PL ATELE T immature grans (abs) 0.0 x10e3 /uL 0.0-0. 1 Not Available [facility] ([facility]) [address] [facility], [place], [address], 09/24/2024 09:13:13 Result Notes None recorded. Problems Name Problem SNOMED Code Status Onset Date Resolution Date Notes Provider Name and Address Organization Details Recorded Time Anxiety 08889064 Active Kobe Smith MD Attn: Tamia cordon,[address] [facility], [place], [address], [facility] 09:46:33 Headache 62874304 Active seeing Dr.Liu Kobe Smith MD Attn: Tamia cordon,[address] [facility], [place], [address], [place] [facility] 2 10:25:55 Upper respirat ory infectio n 20628014 Completed 10/13/2016 Kobe Smith MD Attn: Tamia cordon,[address] [facility], [place], [address], [place] [facility] 6 14:52:06 Cough 79754845 Completed 10/13/2016 Kobe Smith MD Attn: Tamia cordon,[address] [facility], [place], [address], [place] [facility] 6 14:52:10 Vitamin D deficien cy 78367224 Active Alison Corona MA null, [place] [facility] 9 10:36:19 Anemia 092875299 Active Alison Corona [place] null, [place] [facility] 9 10:36:19 Obstruct allison sleep apnea syndrome 76948448 Active 2018 on cpap/ sees Dr.Rai Kobe Smith MD Attn: Tamia cordon,[address] [facility], [place], [address], [place] [facility] 3 10:39:12 Family history of colorect al cancer 73459490039 04 Active 2019 colonosc opy 04/06 Kobe Smith MD Attn: Tamia cordon,[address] [facility], [place], [address], [place] [facility] 4 10:06:56 Hyperlip idemia 66913375 Active 2020 Kobe Smith MD Attn: Terenceflorinda cordon,[address] [facility], [place], [address], [place] [facility] 2 10:25:55 Tremor 31798115 Active 2020 Kobe Smith MD Attn: Terenceflorinda cordon,[address] [facility], [place], [address], [place] [facility] 2 10:25:55 Notes:Some problems listed i n Document: #[id number] could not be added to this patient's chart. Please review this document and add these problems to the patient's chart manually as needed. Problem Notes None recorded. Procedures Surgical History Date Name Laterality Status Provider Name and Address Organization Details Recorded Time 2 colonoscopy completed Kobe Smith MD Attn: Accounting,[address], [place], [address], [facility] 05/08/2022 09:37:57 Imaging Results None recorded. Procedure Notes None recorded. Medical Equipment None Reported. Allergies Allergen ID Allergen Name Allergen Category Reaction Reaction Severity Criticality Documentation Date Start Date Code Code System Note Provider Name and Address Organization Details Recorded Time 52652 Product containin g penicilli n (product) medicatio n rash severe Not available 02/12/2016 00912 8001 SNOMED also cause s swell ing of face and tongu e ODESSA Maloney, [place] - [facility] 6 14:46:43 Medications Name Sig Start Date Stop Date Status Note LastModified by Organization Details LastModified Time venlafaxin e ER 75 mg capsule,ex tended release 24 hr active Not Available Not Available Not Available atorvastat in 10 mg tablet TAKE 1 TABLET BY MOUTH EVERY DAY active Not Available Not Available No t Available azithromyc in 250 mg tablet 06/08 completed Not Available Not Available Not Available benzonatat e 200 mg capsule Take 1 capsule 3 times a day by oral route as needed. 10/14 completed Not Available Not Available Not Available venlafaxin e ER 150 mg capsule,ex tended release 24 hr TAKE 1 CAPSULE BY MOUTH EVERY DAY 02/28 completed Not Available Not Available Not Available topiramate 25 mg tablet Take 2 tablets twice a day by oral route for 30 days. active Not Available Not Available No t Available Tamiflu 75 mg capsule active Not Available Not Available N ot Available tramadol 50 mg tablet TK 1 T PO Q 4 H PRF PAIN 11/06 completed not taking Not Available Not Available Not Available triamcinol one acetonide 0.1 % topical cream APPLY A THIN LAYER TO THE AFFECTED AREA(S) BY TOPICAL ROUTE 2 TIMES PER DAY 04/11 completed Not Available Not Available Not Available propranolo l 40 mg tablet active Not Available Not Available Not Available amitriptyl ine 10 mg tablet Take 1 tablet every day by oral route at bedtime. active Not Available Not Available No t Available benzonatat e 100 mg capsule Take 1 capsule 3 times a day by oral route as needed for cough. 10/13 completed Not Available Not Available Not Available paroxetine 20 mg tablet Take 1 tablet every day by oral route for 30 days. 04/04 completed not taking Not Available Not Available Not Available ferrous sulfate 325 mg (65 mg iron) tablet TAKE 1 TABLET BY MOUTH EVERY DAY 01/25 completed not taking Not Available Not Available Not Available ergocalcif woo (vitamin D2) 1,250 mcg (50,000 unit) capsule Take 1 capsule every week by oral route for 28 days. 01/25 completed not taking Not Available Not Available Not Available nystatin 100,000 unit/gram topical powder APPLY TO THE AFFECTED AREA(S) BY TOPICAL ROUTE 2 TIMES PER DAY 04/11 completed as needed Not Available Not Available Not Available levofloxac in 500 mg tablet active Not Available Not Available Not Available propranolo l 20 mg tablet TAKE 1 TABLET BY MOUTH TWICE DAILY 01/15 completed Not Available Not Available Not Available ondansetro n 4 mg disintegra ting tablet Place 1 tablet 3 times a day by translin gual route as needed for 5 days. 01/02 completed Not Available Not Available Not Available topiramate 100 mg tablet TAKE 1 TABLET BY MOUTH EVERY DAY 10/14 completed Not Available Not Available Not Available fluoxetine 20 mg capsule TAKE 1 CAPSULE BY MOUTH EVERY DAYNE ED APPOINTM ENT 06/08 completed Not Available Not Available Not Available Ventolin HFA 90 mcg/actuat ion aerosol inhaler Inhale 2 puffs 3 times a day by inhalati on route as needed. 01/25 completed Not Available Not Available Not Available modafinil 100 mg tablet TAKE 1 TABLET BY MOUTH DAILY 12/08 completed Not Available Not Available Not Available bupropion HCl XL 300 mg 24 hr tablet, extended release active Not Available Not Available Not Available topiramate 50 mg tablet TAKE 1 TABLET BY MOUTH TWICE DAILY active Not Available Not Available No t Available nitrofuran toin monohydrat e/macrocry stals 100 mg capsule TAKE 1 CAPSULE BY MOUTH EVERY 12 HOURS FOR 7 DAYS 05/08 completed Not Available Not Available Not Available Virtussin AC 10 mg-100 mg/5 mL oral liquid active Not Available Not Available Not Available ID NOW COVID-19 Test Kit TEST DIRECTED TODAY 01/02 completed Not Available Not Available Not Available Mounjaro 2.5 mg/0.5 mL subcutaneo us pen injector 2024 active Not Available Not Available Not Avai lable Vitals Date Recorded Body height Body mass index (BMI) Body weight Heart rate Respiratory rate Body temperature Oxygen saturation Oxygen saturation in Arterial blood by Pulse oximetry Systolic And Diastolic Provider Name and Address Organization Details Last Updated DateTime 5 154.94 cm 27.3 kg/m2 13583.8 2 g 83 /min 14 /min 97.2 [degF] 98 % 98 % 92/71 mm[Hg] Alison Corona MA [facility] 5 09:30:57 Date Recorded Body height Body mass index (BMI) Body weight Heart rate Respiratory rate Body temperature Oxygen saturation Oxygen saturation in Arterial blood by Pulse oximetry Systolic And Diastolic Provider Name and Address Organization Details Last Updated DateTime 4 154.94 cm 37.8 kg/m2 42016.4 7 g 78 /min 16 /min 98 [degF] 95 % 95 % 112/80 mm[Hg] BURKE Hazel [facility] 4 12:22:47 Date Recorded Body height Body mass index (BMI) Body weight Heart rate Respiratory rate Body temperature Oxygen saturation Oxygen saturation in Arterial blood by Pulse oximetry Systolic And Diastolic Provider Name and Address Organization Details Last Updated DateTime 4 154.94 cm 37.8 kg/m2 84399.4 7 g 67 /min 14 /min 97.5 [degF] 98 % 98 % 119/83 mm[Hg] Alison Corona MA [facility] 4 12:15:09 Date Recorded Body height Body mass index (BMI) Body weight Respiratory rate Body temperature Oxygen saturation Oxygen saturation in Arterial blood by Pulse oximetry Heart rate Systolic And Diastolic Provider Name and Address Organization Details Last Updated DateTime 4 154.94 cm 32.7 kg/m2 43509.4 8 g 16 /min 98 [degF] 96 % 96 % 72 /min 110/76 mm[Hg] BURKE Hazel [facility] 4 09:53:43 Date Recorded Body height Body mass index (BMI) Body weight Respiratory rate Body temperature Oxygen saturation Oxygen saturation in Arterial blood by Pulse oximetry Heart rate Systolic And Diastolic Provider Name and Address Organization Details Last Updated DateTime 4 154.94 cm 29.7 kg/m2 86852 g 16 /min 97.5 [degF] 98 % 98 % 70 /min 106/74 mm[Hg] BURKE Hazel [facility] 4 09:46:43 Social History Question Answer Notes LastModified by Organizat ion Details LastModified Time Tobacco Smoking Status Never Smoker Lenore Anthony MA [facility], [facility] 02/12/2016 14:50:21 Do You Have An Advance Directive? No Information not available 02/18/2021 Are You Blind Or Do You Have Difficulty Seeing? No Reading Glasses Information not available 01/15/2022 What Is Your Level Of Caffeine Consumption? Moderate Information not available 05/08/2022 How Much Tobacco Do You Chew? None Information not available 08/13/2016 In The 14 Days Before Symptom Onset, Have You Had Close Contact With A Laboratory-confir med COVID-19 While That Case Was Ill? No Information not available 04/27/2020 In The 14 Days Before Symptom Onset, Have You Had Close Contact With A Person Who Is Under Investigation For COVID-19 While That Person Was Ill? No Information not available 04/27/2020 Have You Been To An Area Known To Be High Risk For COVID-19? No [email or web address] Information not available 10/14/2021 Are You Deaf Or Do You Have Serious Difficulty Hearing? No Information not available 02/18/2021 What Type Of Diet Are You Following? REGULAR Low Calories Information not available 02/29/2024 Which Illicit Or Recreational Drugs Have You Used? Denies Information not available 08/13/2016 Education 4 Year College Information not available 06/08/2017 What Is The Highest Grade Or Level Of School You Have Completed Or The Highest Degree You Have Received? [id number] Information not available 02/18/2021 Are There Any Guns Present In Your Home? Yes Information not available 04/04/2019 Hard Of Hearing Or Deaf In One Or Both Ears? No Information not available 04/27/2020 Legally Blind In One Or Both Eyes? No Information no t available 04/27/2020 Marital Status Informatio n not available 08/13/2016 What Was The Date Of Your Most Recent Tobacco Screening? 12/08/2024 Information not available 12/08/2024 Performs Monthly Self-breast Exam? No [email or web address] Information no t available 02/10/2020 What Is Your Relationship Status? Information not available 02/18/2021 Do You Use Your Seat Belt Or Car Seat Routinely? Yes Information not available 02/18/2021 Seat Belts Used Routinely Yes Information not available 04/04/2019 Smoke Alarm In Home Yes Information not available 10/19/2019 Do You Have Smoke And Carbon Monoxide Detectors In Your Home? Yes Information not available 02/18/2021 How Much Tobacco Do You Smoke? No Information not available 10/19/2019 General Stress Level High Daughter Has Cancer Information not available 11/06/2020 Do You Use Sunscreen Routinely? Yes Information not available 04/04/2019 Has Tobacco Cessation Counseling Been Provided? No Information not available 09/01/2022 Sex: Female Functional Status Question Answer Note LastModified by Organizat ion Details LastModified Time Do you use any illicit or recreational drugs? No Information not available 02/18/2021 Do you or have you ever used any other forms of tobacco or nicotine? No [email or web address] Information not available 07/11/2021 What is your level of alcohol consumption? None [email or web address] Information not available 02/12/2016 Do you or have you ever used smokeless tobacco? Never used smokeless tobacco Information not available 10/19/2019 Are you currently employed? Yes [email or web address] Information not available 12/30/2023 Are you able to care for yourself independently? 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 Never used electronic cigarettes Information not available 10/19/2019 What is your exercise level? None Information not available 12/08/2024 Mental Status Question Answer Note LastModified by Organizat ion Details LastModified Time Do you feel stressed (tense, restless, nervous, or anxious, or unable to sleep at night)? [id number] unable to sleep because of leg Information not available 12/08/2024 Family History Relationship Description Onset Age of this Age Resolved Age Notes LastModified by Organization Details LastModified Time Mother Harmful pattern of use of alcohol Not available 2015 11:03:31 Mother History of depression Not available 08/13 11:03:31 Mother Essential hypertension Not available 11:03:31 Brother Attention deficit hyperactivit y disorder Not available 08/13 11:03:31 Brother History of depression Not available 08/13 11:03:31 Medical History Condition Response Coronary Artery Disease N Other N High Blood Pressure N Atrial Fibrillation N Kidney or Bladder Problems N Thyroid Problems N GI Problems N Depression Y COPD N Blood Clots N Skin Problems N Anemia Y Heart Attack (TN) N Anxiety Disorder Y Diabetes N Muscle, Joint, or Bone Problems N Seizures/Epilepsy N Acid Reflux (GERD) Y Cancer N Stroke N Asthma N Allergies N High Cholesterol N Hepatitis N Liver Disease N Headaches Y Heart Failure N Osteoporosis N Gynecological History Statement/Question Response Flow Moderate Date of LMP 09/02/2024 Frequency of Cycle (Q days) 5 Menses Monthly Y Duration of Flow (days) 5 Current Control Method None Most Recent Mammogram LMP Definite Obstetrics History GPAL:G 2 P 2 0 0 2 Type Value Full Term 2 Living 2 Total 2 Immunizations Vaccine Type Date Status Note Provider Kirk barriga and Address Organization Details Recorded Time SARS-COV-2 (COVID-19) vaccine, UNSPECIFIED 1 completed [place] yeung, [place] - [facility] 10/14/2021 12:07:36 Influenza, split virus, quadrivalent, preservative 1 completed Alison Corona [place] null, [place] [facility] 01/15/2022 14:36:06 Influenza, split virus, quadrivalent, preservative 6 completed Not Available [facility] 12/03/2019 02:32:32 Influenza, split virus, quadrivalent, preservative 9 completed Not Available [facility] 12/03/2019 02:38:49 Td (adult) 1 completed Alison ODESSA Corona null, [place] [facility] 10/19/2019 10:36:31 Tdap 2 completed Alison Cor[place], [place] [facility] 05/08/2022 16:26:57 Influenza, split virus, quadrivalent, preservative 2 completed Kobe Smith MD Attn: Accounting[address] [place], [address], [facility] - [facility] 09/01/2022 14:33:22 Influenza, split virus, trivalent, preservative 4 completed Kobe Smith MD Attn: Accounting[address] [place], [address], [facility] - [facility] 09/23/2024 13:01:13 Past Encounters Encounter ID Performer Location Encounter Start Date Encounter Closed Date Diagnosis/Indication Diagnosis SNOMED-CT Code Diagnosis ICD10 Code Diagnosis IMO Codes Diagnosis Note [id number] MD Debbie Barberhalto (Adult Med) [address] [place] [address] 02/12/2016 14:21:29 02/13/2016 10:14:56 Anxiety 49111834 F41.1 continue Wellbutrin Headache 45601204 R[address]Rai Hawthorne resp iratory infection 31967543 J06.9 supportive care pt return to call or clinic if problem continues [id number] [facility] [address] [place] [address] 05/14/2016 10:53:09 05/21/2016 10:04:51 Anxiety 07484723 F41.1 continue Wellbutrin Headache 08177463 R51 continue Topamax [id number] [facility] [address] [place] [address] 08/13/2016 10:28:33 08/13/2016 15:52:40 Anxiety 79904886 F41.1 fair control Add Prozac continue Wellbutrin Headache 63131141 R51 continue Topamax Cough 10226498 R05 possibly related to allergies /airway reactive disease Trial of albuterol Adult [facility] th examination 886242230 Z00.00 Vitamin D deficiency 347 09441 E55.9 Administra tion of influenza vaccine 29646959 Z23 [id number] [facility] [address] [place] [address] 10/13/2016 14:28:28 10/13/2016 15:50:09 Anxiety 44641281 F41.1 improvingc ontinue Prozac and Wellbutrin Anemia 090588220 D50.9 pt to do stool kitpt has heavy periodscon tinue iron tab for now Vitamin D deficiency 347 66287 E55.9 Headache 00244899 R51 continue Topamaxpt was seeing in the past and awaiting to get [facility] . [id number] [facility] [address] [place] [address] 01/23/2017 08:44:24 01/23/2017 10:19:33 Anxiety 29718194 F41.1 stablecont inue Wellbutrin Discontinu e prozac due to tremor [id number] [facility] [address] [place] [address] 06/08/2017 10:59:30 06/10/2017 09:52:26 Anxiety 27136226 F41.1 stablecont inue Wellbutrin Discontinu ed prozac due to tremor Headache 18159573 R51 continue Topamax per [id number] [facility] [address] [facility] [place] [address] 01/25/2019 09:55:28 01/26/2019 10:11:28 Anxiety 46837940 F41.1 pt wants to stop paxil which interferes with sex drive per pt .Start pt on Venlafaxin ePt to taper paxil-1/2 tab daily for 2-3 wks while starting venlafaxin econtinue Wellbutrin Headache 93629747 R51 continue Topamaxpt was seeing in the past Anemia 451399001 D50.9 pt stopped iron tab Vitamin D deficiency 347 97469 E55.9 Chronic tremor 014601129 R25.1 Refer to neuro Obesity 687957814 E66.9 healthy diet and exercise discussed with pt Cyst of scalp 979422945 L72.9 on scalp ( very small)pt wants to see derm [id number] MD Debbie Barberhalto (Adult Med) [address] [place] [address] 04/04/2019 10:08:30 04/05/2019 12:02:48 Anxiety 56065816 F41.1 Improving on Venlafaxin e Stopped paxil due to interferen ce with sex life.poncho nue Wellbutrin [id number] [facility] [address] [place] [place] [address] 07/01/2019 09:28:30 07/04/2019 10:18:23 Anxiety 48292519 F41.1 Improving on Venlafaxin e Stopped paxil due to interferen ce with sex life.poncho nue Wellbutrin Headache 47179445 R51 continue Topamaxpt stopped seeing -pt is planning to go back to see him [id number] MD Debbie Barberhalto (Adult Med) [address] [place] [address] 10/19/2019 10:29:46 10/20/2019 08:38:11 Administration of influenza vaccine 42320437 Z23 Anxiety 35869306 F41.1 Improving on Venlafaxin e Stopped paxil due to interferen ce with sex life.poncho nue Wellbutrin Headache 15100041 R51 continue Topamaxpt stopped seeing -pt is planning to go back to see him Obstructiv e sleep apnea syndrome 03361627 G47.33 pt is seeing , awaiting for cpap machine Submammary intertrigo 24 2253284 L30.4 keep area clean and dry [id number] MD Debbie Barberhalto (Adult Med) [address] [place] [address] 02/10/2020 08:08:50 02/10/2020 08:38:36 Anxiety 73937747 F41.1 stable on Venlafaxin e Stopped paxil due to interferen ce with sex life.poncho nue Wellbutrin Headache 16920288 R51 continue Topamaxpt stopped seeing -pt is planning to go back to see him [id number] MD Reema Barber (Adult Med) [address] [place] [address] 04/11/2020 08:38:30 04/12/2020 15:29:24 Anxiety 66242272 F41.1 stable on Venlafaxin e Stopped paxil due to interferen ce with sex life.poncho nue Wellbutrin Headache 24505305 R51 continue Topamaxpt stopped seeing Dr.Rai Esquivelpt is planning to go back to see him Low back pain 342108853 M54.5 on and offpt to make in person appt to evaluate [id number] MD Debbie Barberhalto (Adult Med) [address] [place] [address] 04/27/2020 12:18:12 05/02/2020 08:29:08 Backache 252206181 M54.9 improving .pt to back exerciseur ine dipstick-n eg [id number] MD Reema Barber (Adult Med) [address] [place] [address] 07/30/2020 08:10:01 07/31/2020 13:56:20 Anxiety 40210925 F41.1 stable on Venlafaxin e Stopped paxil due to interferen ce with sex life.poncho nue Wellbutrin Headache 66392874 R51 continue Topamaxpt stopped seeing Dr.Rai Esquivelpt is planning to go back to see him [id number] MD Reema Barber (Adult Med) [address] [facility] [place] [address] 11/06/2020 08:31:08 11/08/2020 00:15:29 Anxiety 97556757 F41.1 stable on Venlafaxin e Stopped paxil due to interferen ce with sex life.poncho nue Wellbutrin Backache 864000124 M54.9 intermitte nt ./declined med at this time.pt to back exercise/h eat therapy Adult heal th examination 063724262 Z00.00 healthy diet and exercise discussed with pt Family his tory of colorectal cancer 6637675548 104 Z80.0 [id number] MD Reema Barber (Adult Med) [address] [facility] [place] [address] 02/18/2021 10:35:27 02/19/2021 10:28:23 Anxiety 11259852 F41.1 stable on Venlafaxin e / bupropion Stopped paxil due to interferen ce with sex life. Headache 79132877 R51.9 pt is on topamax [id number] MD Debbie Barberhalto (Adult Med) [address] [facility] [place] [address] 07/11/2021 10:32:45 07/15/2021 17:33:47 Anxiety 37166334 F41.1 stable on Venlafaxin e / bupropion Stopped paxil due to interferen ce with sex life. COVID-19 577888359 U07.1 self isolation/ keep good hydration [id number] MD Reema Barber (Adult Med) [address] [facility] [place] [address] 10/14/2021 12:00:00 10/15/2021 15:12:30 Anxiety 65566958 F41.1 stable on Venlafaxin e / bupropion Stopped paxil due to interferen ce with sex life. Headache 86702951 R51.9 pt to take topamax 50 mg bid-add propranolo l 20 mg bid [id number] MD Debbie Barberhalto (Adult Med) [address] [place] [address] 01/15/2022 14:29:28 01/16/2022 09:52:49 Headache 17178192 R51.9 with tremors -pt to take topamax 50 mg bid-pt to increase propranolo l 40 mg bid Anxiety 65063873 F41.1 stable on Venlafaxin e / bupropion Stopped paxil due to interferen ce with sex life. Obesity 796071798 E66.9 healthy diet and exercise discussed with pt Family his tory of colorectal cancer 4605701758 104 Z80.0 Hyperlipidemia 60944807 E78.5 healthy diet and exercise discussed with pt [id number] [facility] [address] [place] [address] 05/08/2022 09:27:28 05/09/2022 13:01:27 Anxiety 93153209 F41.1 stable on Venlafaxin e / bupropion Stopped paxil due to interferen ce with sex life. Headache 35025566 R51.9 with tremors -pt to take topamax 50 mg bid /propranol ol 40 mg bid Obesity 830344889 E66.9 healthy diet and exercise discussed with pt Hyperlipidemia 53112574 E78.5 healthy diet and exercise discussed with pt Administra tion of diphtheria, pertussis, and tetanus vaccine 384039214 Z23 [id number] [facility] [address] [place] [address] 09/01/2022 11:24:14 09/02/2022 13:39:13 Administration of influenza vaccine 38555949 Z23 Anxiety 57678078 F41.1 stable on Venlafaxin e / bupropion Stopped paxil due to interferen ce with sex life. Hyperlipidemia 15212910 E78.5 healthy diet and exercise discussed with pt Obstructiv e sleep apnea syndrome 71845264 G47.33 pt is compliant with cpap machine/se es -needs to make f/u Headache 73628283 R51.9 with tremors -pt to take topamax 50 mg bid /propranol ol 40 mg bid [id number] [facility] [address] [place] [address] 01/02/2023 10:36:16 01/07/2023 15:21:20 Anxiety 92911264 F41.1 stable on Venlafaxin e / bupropion Stopped paxil due to interferen ce with sex life. Headache 78490982 R51.9 with tremors -pt to take topamax 50 mg bid /propranol ol 40 mg bid Obstructiv e sleep apnea syndrome 19863294 G47.33 pt is compliant with cpap machine/se es Obesity 048114470 E66.9 healthy diet and exercise discussed with pt [id number] Kobe Smith MD [facility] (Adult Med) [address] [place] [address] 03/31/2023 11:58:00 04/03/2023 10:49:37 Anxiety 07307788 F41.1 stable on Venlafaxin e / bupropion Stopped paxil due to interferen ce with sex life. Headache 78386473 R51.9 with tremors -pt to take topamax 50 mg bid /propranol ol 40 mg bid Hyperlipidemia 28876286 E78.5 healthy diet and exercise discussed with pt Obesity 903316911 E66.9 healthy diet and exercise discussed with pt Upper resp iratory infection 22660143 J06.9 supportive care pt return to call or clinic if problem continues Obstructiv e sleep apnea syndrome 88675510 G47.33 pt is compliant with cpap machine/se es [id number] Kobe Smith MD [facility] (Adult Med) [address] [place] [address] 07/03/2023 11:33:10 07/07/2023 14:00:18 Anxiety 42808797 F41.1 stable on Venlafaxin e / bupropion Stopped paxil due to interferen ce with sex life. Headache 62854215 R51.9 with tremors -pt to take topamax 50 mg bid /propranol ol 40 mg bid Obesity 255197350 E66.9 healthy diet and exercise discussed with pt Obstructiv e sleep apnea syndrome 49226215 G47.33 pt is compliant with cpap machine/se es Hyperlipidemia 12243837 E78.5 healthy diet and exercise discussed with pt [id number] NanMD Reema Turner (Adult Med) [address] [place] [address] 12/30/2023 12:07:02 01/06/2024 14:37:36 Anxiety 48968581 F41.1 fair control on Venlafaxin e / bupropion- pt to increase venlafaxin e 150mg daily- pt to see therapistS topped paxil due to interferen ce with sex life. Obstructiv e sleep apnea syndrome 25255440 G47.33 pt is compliant with cpap machine/se es Headache 84272526 R51.9 with tremors -pt to take topamax 50 mg bid pt is taking propranolo l 40 mg once a day -wants to taper off Obesity 670355790 E66.9 healthy diet and exercise discussed with pt [id number] [facility] [address] [place] [address] 02/29/2024 11:52:18 03/09/2024 19:44:56 Anxiety 32597719 F41.1 -improving on Venlafaxin e / bupropion- pt wants to continue venlafaxin e 75 mg daily instead of 150mg- pt to see therapistS topped paxil due to interferen ce with sex life. Headache 85417407 R51.9 with tremors -pt to take topamax 50 mg bid pt is taking propranolo l 40 mg once a day -wants to continue for tremors Obesity 637146430 E66.9 healthy diet and exercise discussed with pt [id number] MD Reema Barber (Adult Med) [address] [place] [address] 06/17/2024 09:47:27 06/23/2024 11:15:10 Anxiety 53581767 F41.1 -improving on Venlafaxin e / bupropion- pt wants to continue venlafaxin e 75 mg daily instead of 150mg- pt to see therapistS topped paxil due to interferen ce with sex life. Headache 54005785 R51.9 with tremors -pt to take topamax 50 mg bid pt is taking propranolo l 40 mg once a day -wants to continue for tremors Obesity 769495580 E66.8 healthy diet and exercise discussed with ptpt is on wt loss program( online) and taking mounjaro [id number] MD Reema Barber (Adult Med) [address] [place] [address] 09/23/2024 09:37:44 10/04/2024 08:35:22 Administration of influenza vaccine 85257350 Z23 Anxiety 09041712 F41.1 -improving on Venlafaxin e / bupropion- pt wants to continue venlafaxin e 75 mg daily instead of 150mg- pt to see therapistS topped paxil due to interferen ce with sex life. Adult [facility] th examination 098848161 Z00.00 healthy diet and exercise discussed with ptflu shot todaypt is uptodate with mmg [id number] MD Reema Barber (Adult Med) [address] [place] [address] 12/08/2024 09:19:47 12/13/2024 12:27:42 Anxiety 52210742 F41.1 -improving on Venlafaxin e / bupropion- pt wants to continue venlafaxin e 75 mg daily instead of 150mg- pt to see therapistS topped paxil due to interferen ce with sex life. Hyperlipidemia 84813659 E78.5 healthy diet and exercise discussed with pt- continue statin Overweight 734705910 E66 .3 - pt is on Zepbound per telehealth ( [employer]) Health Concerns Section Related Observation LastModified by Organization Detai ls LastModified Time None Recorded Concern Status LastModified by Organization Details LastModified Time None Recorded Advance Directives Directive N: Payers Insurance Date Sequence Insurance Name Policy Number Policy Hayes Covered Member ID Hayes Member ID Guarantor Name 07/03/2023 2 *SELF PAY* Am ilana Merino 08/14/2022 SLIDING FEE SCHEDULE - DISCOUNT Breanne Merino 12/29/2023 1 [place] [id number] Colton Merino [id number] Breanne Wilber 11/22/2020 1 [place] [id number] Colton Merino [id number] Breanne Wilber 01/15/2022 1 [facility] (MEDICAID HMO) [id number] Breanne Merino [id number] Breanne Merino 04/04/2019 1 [facility] - [place]UE [place]IONS [place] ([place]) [id number] Colton Merino [id number] Breanne Merino 01/15/2022 1 [facility] (MEDICAID HMO) Breanne Merino [id number] Breanne Merino 03/12/2025 1 [facility] (O) ILONEX Colton Bronson Wilber [id number] Breanne Merino 01/15/2022 1 [facility] (O) Breanne Merino [id number] Breanne Merino 01/15/2022 1 [place] Breanne Merino [id number] Breanne Merino 07/03/2023 2 [place] Breanne Merino [id number] Breanne Merino Notes Date Note Type Note Provider Name and Address Organization Details Recorded Time 4 text/html Anxiety/DepressionRepor earle by PatientHPIFor context, patient reportsfamily problems (14 yr old daughter with spinal tumor)(pt started working 2 days /wk /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 For associated symptoms, patient reportsanxiety (better),trembling or shaking (tremor), andheadaches (pt was seeing neuro/ pt is on topamax)but reportsdenies homicidal ideationsandno crying spells. For quality, patient reportssymptoms improved (better with med). For severity, patient reportsdenies suicidal ideations. For modifying factors, patient reportsmedications as directed. pt was seeing for headache , taking topamax . 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 For associated symptoms, patient reportsanxiety (better),trembling or shaking (tremor), andheadaches (pt was seeing neuro/ pt is on topamax)but reportsdenies homicidal ideationsandno crying spells. For quality, patient reportssymptoms improved (better with med). For severity, patient reportsdenies suicidal ideations. For modifying factors, patient reportsmedications as directed. pt was seeing for headache , taking topamax . 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 For associated symptoms, patient reportsanxiety (better),trembling or shaking (tremor), andheadaches (pt was seeing neuro/ pt is on topamax)but reportsdenies homicidal ideationsandno crying spells. For quality, patient reportssymptoms improved (better with med). For severity, patient reportsdenies suicidal ideations. For modifying factors, patient reportsmedications as directed. pt was seeing for headache , taking topamax . 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 For associated symptoms, patient reportsanxiety (better),trembling or shaking (tremor), andheadaches (pt was seeing neuro/ pt is on topamax)but reportsdenies homicidal ideationsandno crying spells. For quality, patient reportssymptoms improved (better with med). For severity, patient reportsdenies suicidal ideations. For modifying factors, patient reportsmedications as directed. pt was seeing for headache , taking topamax . 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 For associated symptoms, patient reportsanxiety (better),trembling or shaking (tremor), andheadaches (pt was seeing neuro/ pt is on topamax)but reportsdenies homicidal ideationsandno crying spells. For quality, patient reportssymptoms improved (better with med). For severity, patient reportsdenies suicidal ideations. For modifying factors, patient reportsmedications as directed. pt was seeing for headache/tremor , taking topamax /propranolol.pt is seeing online [employer] program and taking mounjaro Not Available [facility] 12/10/2024 04:12:48 OBGyn Episode No OBEpisode recorded.
== END 2025-08-14 14:41 | disposition home or self-care (01) ==
PROVIDERS: Emergency Provider Nurse Practitioner; PCP Internal Medicine
DX: J06.9 Acute upper respiratory infection, unspecified (principal); K21.9 Gastro-esophageal reflux disease without esophagitis; F41.9 Anxiety disorder, unspecified; F32.A Depression, unspecified
CPT/HCPCS: 87081; 87880; 99213; G0463